=== PATIENT | female | born 2000 | race Hispanic/Latino ===

== ENCOUNTER 2024-05-11 17:21 | Emergency (ER) | payer OTHER ==
[2024-05-11] MEDS ORDERED: ONDANSETRON 4 MG/2 ML VIAL ONE (17:34)
[2024-05-11] MEDS ORDERED: KETOROLAC 30 MG/ML INJ ONE (17:34)
[2024-05-11] MEDS ORDERED: NA CHLORIDE 0.9% 1,000 ML ONE (17:35)
[2024-05-11 17:42] LABS: Absolute Basophils 0.2 K/uL (0-0.5); Absolute Eosinophils 0.4 K/uL (0-0.5); Absolute Lymphocytes (CBC) 3.4 K/uL (0.7-4.9); Absolute Monocytes 0.8 K/uL (0.1-1.3); Absolute Neutrophil 11.8 K/uL (1.8-8.0); Basophils % 0.9 % (0-1.3); Eosinophils % 2.4 % (0-4.4); Hematocrit 40.7 % (36.0-45.0); Hemoglobin 13.1 g/dL (12.0-15.0); Lymphocytes % 20.4 % (15.3-44.8); MCH 27.9 pg (27.0-35.0); MCHC 32.3 g/dL (32.0-36.0); MCV 86.5 fL (80-100); MPV 8.1 fL (7.6-11.3); Monocytes % 4.9 % (3.3-12.3); Neutrophils % 71.4 % (41.7-73.7); Platelets 443 thou/uL (152-406); RBC Red Blood Cell Count 4.71 M/uL (3.86-4.86); Red Cell Distribution Width 15.4 % (12.1-15.2)
[2024-05-11 18:02] LABS: Albumin 3.9 g/dL (3.4-5.0); Albumin/Globulin Ratio 0.9 (1.1-1.8); Anion Gap 10.7 mEq/L (5.0-15.0); Bilirubin Total 0.3 mg/dL (0.2-1.0); Globulin 4.3 g/dL (2.3-3.5); Potassium 3.7 mEq/L (3.5-5.1); Protein, Total 8.2 g/dL (6.4-8.2)
[2024-05-11 18:17] LABS: Specific Gravity 1.027 (1.005-1.030); Sqamous Epithelial <5 /HPF (None Seen); Urine Bacteria <20 /HPF (<20); Urine Bilirubin NEGATIVE (Negative); Urine Blood Negative (Negative); Urine Clarity Turbid (Clear); Urine Color Yellow (Yellow); Urine Culture Reflex Order NOT NEEDED; Urine Glucose NEGATIVE (Negative); Urine Ketones NEGATIVE (Negative); Urine Microscopic Reflex YN ORDER UMIC; Urine Mucus 2+ /HPF (None Seen); Urine Nitrite NEGATIVE (Negative); Urine Protein TRACE (Negative); Urine Urobilinogen Normal (Normal); Urine WBC <5 /HPF (<5)
[2024-05-11] MEDS ORDERED: FAMOTIDINE 20 MG/2 ML VIAL IV ONE (18:46)
[2024-05-11] MEDS ORDERED: DIPHENHYDRAMINE 50 MG/ML VIAL ONE (18:46)
[2024-05-11] MEDS ORDERED: METHYLPREDNISOLONE 125 MG INJ ONE (18:46)
--- NOTE | 2024-05-11 18:48 | RAD REPORT ---
EXAMINATION: CT Abdomen Pelvis W Contrast CLINICAL INDICATION: Female, 24 years old. ABD PAIN TECHNIQUE: CT abdomen and pelvis was performed, after the administration of IV contrast, as per depar tment protocol. Axial, sagittal and coronal reconstructions were obtained. One or more of the following dose reduction techniques were used: Automated exposure control, adjustment of the mA and k V according to patient size, and iterative reconstruction. Unless otherwise specified, incidental findings do not require dedicated imaging follow-up. COMPARISON: CT abdomen and pelvis 03/01/2016. FINDINGS: LOWER CHEST: The visualized lung bases are clear. LIVER: Mild fatty liver is present. No focal lesion or biliary dilatation is seen. BILIARY SYSTEM: No suspicious abnormalities. SPLEEN: Normal size. No focal lesion. PANCREAS: No mass, ductal dilation, or sharlene-pancreatic fluid. ADRENALS: Normal; no mass. KIDNEYS: Normal size and contour. No hydronephrosis. Left renal mid and lower pole and right lower po le punctate radiodense foci not exceeding 3 mm, suggesting nonobstructing calculi. URINARY BLADDER: Decompressed limiting evaluation. GASTROINTESTINAL TRACT: No evidence of free air, significant intra-abdominal free fluid, bowel obstru ction or abscess. APPENDIX: Normal appendix. LYMPH NODES: No lymphadenopathy. MUSCULOSKELETAL: No acute or suspicious osseous abnormality. ADDITIONAL FINDINGS: Retroverted uterus. Trace fluid in the cul-de-sac, favored to be physiologic. Do minant left ovarian cyst or follicle measuring 2.7 cm with some marginal enhancement. IMPRESSION: Nonobstructing bilateral renal calculi not exceeding 3 mm. No other acute or concerning abnormalities seen in the abdomen or pelvis. Other incidental findings as above.
[2024-05-11] MEDS ORDERED: METOCLOPRAMIDE 10 MG/2mL INJ ONE (19:03)
--- NOTE | 2024-05-11 19:53 | ER ---
Nurse's Notes [facility] Name: Alayna White Age: 24 yrs Sex: Female : 2000 Arrival Date: 05/11/2024 Time: 17:21 Bed 17 Private MD: Diagnosis: Lower abdominal pain, unspecified;Allergy status to unspecified drugs, medicaments and biological substances status Presentation: 05/11 17:28 Chief complaint: EMS states: Lower abdominal pain x 3 hours. Coronavirus screen: At this time, the client does not indicate any symptoms associated with coronavirus-19. Ebola Screen: No symptoms or risks identified at this time. Initial Sepsis Screen: Does the patient meet any 2 criteria? No. Patient's initial sepsis screen is negative. Does the patient have a suspected source of infection? No. Patient's initial sepsis screen is negative. Risk Assessment: Do you want to hurt yourself or someone else? Patient reports no desire to harm self or others. Onset of symptoms was May 11, 2024. 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 - Infectious Disease History:: Denies. - Social history:: Smoking status: Patient denies any tobacco usage or history of. Screenin:31 [facility] ED Fall Risk Assessment (Adult) History of falling in the last 3 months, kc6 including since admission No falls in past 3 months (0 pts) Confusion or Disorientation No (0 pts) Intoxicated or Sedated No (0 pts) Impaired Gait No (0 pts) Mobility Assist Device Used No (0 pt) Altered Elimination No (0 pt) Score/Fall Risk Level 0 - 2 = Low Risk Oriented to surroundings. Abuse screen: Denies threats or abuse. Denies injuries from another. Nutritional screening: No deficits noted. Tuberculosis screening: No symptoms or risk factors identified. Assessment: 17:31 General: Appears in no apparent distress. uncomfortable, obese, well groomed, well kc6 developed, Behavior is calm, cooperative, appropriate for age. Pain: Complains of pain in right lower quadrant, left lower quadrant and suprapubic area. Neuro: Level of Consciousness is awake, alert, obeys commands, Oriented to person, place, time, situation, Appropriate for age. Cardiovascular: Capillary refill < 3 seconds. Respiratory: Airway is patent Trachea midline Respiratory effort is even, unlabored, Respiratory pattern is regular, symmetrical. GI: Abdomen is round non-distended, obese, Bowel sounds present X 4 quads. Abd is soft X 4 quads Abdomen is tender to palpation in suprapubic area, right lower quadrant and left lower quadrant Reports lower abdominal pain, constipation, nausea, Patient currently denies vomiting. : No signs and/or symptoms were reported regarding the genitourinary system. EENT: No signs and/or symptoms were reported regarding the EENT system. Derm: No signs and/or symptoms reported regarding the dermatologic system. Skin is intact, is healthy with good turgor, Skin is pink, warm \T\ dry. Musculoskeletal: No signs and/or symptoms reported regarding the musculoskeletal system. Circulation, motion, and sensation intact. Capillary refill < 3 seconds, Range of motion: intact in all extremities. 18:56 Reassessment: Patient appears in no apparent distress at this time. No changes from kc6 previously documented assessment. Patient and/or family updated on plan of care and expected duration. Pain level reassessed. Patient is alert, oriented x 3, equal unlabored respirations, skin warm/dry/pink. Patient states feeling better. Patient states symptoms have improved. Vital Signs: 17:28 BP 118 / 100; Pulse 72; Resp 16; Temp 98.8(O); Pulse Ox 98% on R/A; Weight 117.93 kg; hb Height 5 ft. 2 in. ; Pain 8/10; 17:31 BP 126 / 76; Pulse 76; Resp 16 S; Pulse Ox 97% on R/A; kc6 18:56 BP 118 / 67; Pulse 86; Resp 18 S; Pulse Ox 99% on R/A; Pain 3/10; kc6 20:00 BP 124 / 77; Pulse 85; Resp 18; Pulse Ox 100% ; cp4 17:28 Body Mass Index 47.55 (117.93 kg, 157.48 cm) hb 17:28 Pain Scale: Adult hb 18:56 Pain Scale: Adult kc6 ED Course: 17:22 Patient arrived in ED. kc6 17:24 Cameron Steele PA is PHCP. cp 17:24 Maria Ines Montes De Oca MD is Attending Physician. cp 17:29 Triage completed. hb 17:30 Claudia Rodriguez, FRANKO is Primary Nurse. kc6 17:30 Arm band placed on. hb 17:31 Patient has correct armband on for positive identification. Bed in low position. Call kc6 light in reach. Side rails up X 1. Pulse ox on. NIBP on. Door closed. Noise minimized. Lights dimmed. Pillow given. 17:31 Inserted saline lock: 20 gauge in right antecubital area, using aseptic technique. kc6 Blood collected. Flushed with 10 mL NS. Patient maintains SpO2 saturation greater than 95% on room air. 18:37 CT Abd/Pelvis - IV Contrast Only In Process Unspecified. EDMS 19:07 Report given to Carlene Bell RN. kc6 20:15 Provided Education on: abdominal pain, drug allergy. cp4 20:15 No provider procedures requiring assistance completed. intact, bleeding controlled, No cp4 redness/swelling at site. Pressure dressing applied. Administered Medications: 17:39 Drug: NS 0.9% IV 1000 ml IV at 1 bolus Per protocol; 1000 mL bolus Route: IV; Rate: 1 kc6 bolus; Site: right antecubital; 17:39 Drug: TORadol - Ketorolac IVP 15 mg IVP once Route: IVP; Site: right antecubital; kc6 18:56 Follow up: Response: Adverse reaction, Physician notified kc6 17:39 Drug: Ondansetron IVP 4 mg IVP once; over 2 minutes Route: IVP; Site: right antecubital;kc6 19:13 Follow up: Response: No adverse reaction kc6 18:56 Drug: diphenhydrAMINE IVP 50 mg IVP once Route: IVP; Site: right antecubital; kc6 19:00 Follow up: Response: No adverse reaction kc6 18:56 Drug: MethylPrednisoLONE IVP 125 mg IVP once Route: IVP; Site: right antecubital; kc6 19:00 Follow up: Response: No adverse reaction kc6 18:56 Drug: Famotidine IVP 20 mg IVP once; dilute with 10 mL 0.9% NaCl; give over 2 minutes kc6 Route: IVP; Site: right antecubital; 19:00 Follow up: Response: No adverse reaction kc6 19:06 Drug: metoCLOPramide IVP 10 mg IVP once; over 1 to 2 minutes Route: IVP; Site: right kc6 antecubital; 20:19 Follow up: Response: No adverse reaction cp4 Medication: 20:15 VIS not applicable for this client. cp4 Outcome: 19:52 Discharge ordered by MD. cp 20:15 Discharged to home ambulatory, cp4 20:15 Condition: stable 20:15 Discharge instructions given to patient, Instructed on discharge instructions, follow up and referral plans. medication usage, Demonstrated understanding of instructions, follow-up care, medications, Prescriptions given X 4, 20:18 Patient left the ED. cp4 Signatures: Dispatcher [employer] EDMS Cameron Steele PA PA cp Baxter, Heather, RN RN Claudia Rodriguez RN RN [facility] Maddy Bell [facility] Corrections: (The following items were deleted from the chart) 17:39 17:30 Allergies: No Known Allergies; hb kc6 19:12 17:39 Ondansetron IVP 4 mg IVP in right antecubital kc6 kc6 19:12 18:56 Response: No adverse reaction; Nausea is decreased kc6 kc6
--- NOTE | 2024-05-11 19:53 | EDPHYS ---
Physician Documentation [facility] Name: Alayna White Age: 24 yrs Sex: Female : 2000 Arrival Date: 05/11/2024 Time: 17:21 Bed 17 Private MD: ED Physician Maria Ines Montes De Oca HPI: 05/11 17:25 This 24 yrs old Female presents to ER via Unassigned with complaints of Lower Abdominal cp Pain. 17:25 The patient presents with abdominal pain in the lower abdomen. Onset: The cp symptoms/episode began/occurred today, about 1400. The symptoms radiate to low back and flank area. Associated signs and symptoms: Pertinent positives: constipation. The symptoms are described as crampy. 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 - Infectious Disease History:: Denies. - Social history:: Smoking status: Patient denies any tobacco usage or history of. ROS: 17:30 Constitutional: Negative for body aches, chills, fever, poor PO intake, cp 17:30 Cardiovascular: Negative for chest pain, palpitations, cp 17:30 Respiratory: Negative for cough, shortness of breath, wheezing, 17:30 Eyes: Negative for injury, pain, redness, and discharge, cp 17:30 ENT: Negative for drainage from ear(s), ear pain, sore throat, difficulty swallowing, difficulty handling secretions, 17:30 Abdomen/GI: Positive for abdominal pain, nausea, of the right lower quadrant and left lower quadrant, Negative for vomiting, diarrhea, constipation, 17:30 Back: Positive for radiated pain, of the low back area, 17:30 : Negative for urinary symptoms, vaginal bleeding, vaginal discharge, 17:30 All other systems are negative, Exam: 17:34 Head/Face: Normocephalic, atraumatic. cp 17:34 Constitutional: The patient appears in no acute distress, alert, awake, non-toxic, well developed, obese, uncomfortable, 17:34 Eyes: Periorbital structures: appear normal, Conjunctiva: normal, no exudate, no injection, Sclera: no appreciated abnormality, Lids and lashes: appear normal, bilaterally, 17:34 ENT: External ear(s): are unremarkable, Nose: is normal, Mouth: Lips: moist, Oral mucosa: moist, Posterior pharynx: Airway: no evidence of obstruction, patent, 17:34 Chest/axilla: Inspection: normal, 17:34 Cardiovascular: Rate: normal, Rhythm: regular, 17:34 Respiratory: the patient does not display signs of respiratory distress, Respirations: normal, no use of accessory muscles, no retractions, labored breathing, is not present, Breath sounds: are clear throughout, no decreased breath sounds, no stridor, no wheezing, 17:34 Abdomen/GI: Inspection: obese Bowel sounds: active, all quadrants, Palpation: soft, in all quadrants, moderate abdominal tenderness, in the right lower quadrant and left lower quadrant, rebound tenderness, is not appreciated, involuntary guarding, is not appreciated, 17:34 Back: pain, that is moderate, of the low back area, ROM is painful, with all movement, CVA tenderness, is absent, 19:50 : Pelvic Exam: The exam is refused by the patient/guardian. The risks and cp consequences are understood by the patient, Vital Signs: 17:28 BP 118 / 100; Pulse 72; Resp 16; Temp 98.8(O); Pulse Ox 98% on R/A; Weight 117.93 kg; hb Height 5 ft. 2 in. ; Pain 8/10; 17:31 BP 126 / 76; Pulse 76; Resp 16 S; Pulse Ox 97% on R/A; kc6 18:56 BP 118 / 67; Pulse 86; Resp 18 S; Pulse Ox 99% on R/A; Pain 3/10; kc6 20:00 BP 124 / 77; Pulse 85; Resp 18; Pulse Ox 100% ; cp4 17:28 Body Mass Index 47.55 (117.93 kg, 157.48 cm) hb 17:28 Pain Scale: Adult hb 18:56 Pain Scale: Adult kc6 MDM: 18:00 Differential diagnosis: appendicitis, non-specific abd pain, Ovarian Torsion, Pelvic cp Inflammatory Disease, Pyelonephritis, Tubal Ovarian Abcess, Ureterolithiasis, urinary tract infection. 19:52 Patient medically screened. cp 19:52 Data reviewed: vital signs, nurses notes, lab test result(s), radiologic studies, CT cp scan. 19:52 I considered the following discharge prescriptions or medication management in the emergency department Medications were administered in the Emergency Department. See MAR. Counseling: I had a detailed discussion with the patient and/or guardian regarding the historical points, exam findings, and any diagnostic results supporting the discharge/admit diagnosis, lab results, radiology results, to return to the emergency department if symptoms worsen or persist or if there are any questions or concerns that arise at home. Response to treatment: the patient's symptoms have markedly improved after treatment, and as a result, I will discharge patient. Special discussion: Based on the patient's Hx, exam, and Dx evaluation, there is no indication for emergent surgery or inpatient Tx. It is understood by the patient/guardian that if the Sx's persist or worsen they need to return immediately for re-evaluation. 05/11 17:26 Order name: CBC with Diff; Complete Time: 18:22 cp 05/11 18:23 Interpretation: Normal except: WBC 16.60; PLT 443; RDW 15.4; NEUT A 11.8. cp 05/11 17:26 Order name: CMP; Complete Time: 18:22 cp 05/11 18:23 Interpretation: Normal except: GLUC 146. cp 05/11 17:26 Order name: Lipase; Complete Time: 18:22 cp 05/11 17:26 Order name: Test, Urine; Complete Time: 18:22 cp 05/11 17:26 Order name: Urinalysis w/ reflexes; Complete Time: 18:22 cp 05/11 17:30 Order name: Test, Serum; Complete Time: 18:22 kc6 05/11 17:26 Order name: CT Abd/Pelvis - IV Contrast Only; Complete Time: 19:01 cp 05/11 17:26 Order name: IV Saline Lock; Complete Time: 17:30 cp 05/11 17:26 Order name: Labs collected and sent; Complete Time: 17:30 cp Administered Medications: 17:39 Drug: NS 0.9% IV 1000 ml IV at 1 bolus Per protocol; 1000 mL bolus Route: IV; Rate: 1 kc6 bolus; Site: right antecubital; 17:39 Drug: TORadol - Ketorolac IVP 15 mg IVP once Route: IVP; Site: right antecubital; kc6 18:56 Follow up: Response: Adverse reaction, Physician notified kc6 17:39 Drug: Ondansetron IVP 4 mg IVP once; over 2 minutes Route: IVP; Site: right antecubital;kc6 19:13 Follow up: Response: No adverse reaction kc6 18:56 Drug: diphenhydrAMINE IVP 50 mg IVP once Route: IVP; Site: right antecubital; kc6 19:00 Follow up: Response: No adverse reaction kc6 18:56 Drug: MethylPrednisoLONE IVP 125 mg IVP once Route: IVP; Site: right antecubital; kc6 19:00 Follow up: Response: No adverse reaction kc6 18:56 Drug: Famotidine IVP 20 mg IVP once; dilute with 10 mL 0.9% NaCl; give over 2 minutes kc6 Route: IVP; Site: right antecubital; 19:00 Follow up: Response: No adverse reaction kc6 19:06 Drug: metoCLOPramide IVP 10 mg IVP once; over 1 to 2 minutes Route: IVP; Site: right kc6 antecubital; 20:19 Follow up: Response: No adverse reaction cp4 Disposition Summary: 05/11/24 19:52 Discharge Ordered Notes: Location: Home cp Problem: new cp Symptoms: have improved cp Condition: Stable cp Diagnosis - Lower abdominal pain, unspecified cp - Allergy status to unspecified drugs, medicaments and biological substances status cp Followup: cp - With: Private Physician - When: 2 - 3 days - Reason: Recheck today's complaints Discharge Instructions: - Discharge Summary Sheet cp - Abdominal Pain, Adult cp - Drug Allergy cp Forms: - Medication Reconciliation Form cp - Antibiotic Education cp - Prescription Opioid Use cp - Patient Portal Instructions cp - Leadership Thank You Letter cp Prescriptions: - Pepcid 20 mg Oral Tablet - take 1 tablet ORAL route every 12 hours for 10 days; 20 tablet; Refills: 0, cp Product Selection Permitted - Zofran 4 mg Oral Tablet - take 1 tablet ORAL route every 12 hours As needed; 20 tablet; Refills: 0, cp Product Selection Permitted - Medrol (Meet) 4 mg Oral Tablets, Dose Pack - take 1 tablet ORAL route as directed - follow package instructions; 1 packet; cp Refills: 0, Product Selection Permitted - dicyclomine 20 mg Oral tablet - take 1 tablet ORAL route 4 times per day; 30 tablet; Refills: 0, Product cp Selection Permitted Signatures: Dispatcher [employer] Cameron Cerrato PA PA cp Baxter, Heather, RN RN Claudia Dorantes RN RN kc6 Maddy Bell cp4 Corrections: (The following items were deleted from the chart) 17:39 17:30 Allergies: No Known Allergies; justin [id number]
[2024-05-11 20:30] VITALS: TEMP 98.8
[2024-05-11 20:35] VITALS: BP 124/77; O2SAT 100
== END 2024-05-11 20:18 | disposition home or self-care (01) ==
LOC: ER 17:21
DX: R10.32 Left lower quadrant pain (principal); R10.31 Right lower quadrant pain; Z88.6 Allergy status to analgesic agent
CPT/HCPCS: 85025; 81001; 36415; 84703; 81025; 83690; 80053; 74177; 96375; 96374; 99284; Q9967; J2765; J1200; J2919; J2405; J7030

== ENCOUNTER 2024-12-03 15:27 | Emergency (ER) | payer OTHER ==
--- OUTSIDE RECORDS SUMMARY | 2024-12-03 15:34 | XMS REPORT | Continuity of Care Document ---
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 [facility] 2023-03-20 00:00:00 2023-03-20 00:00:00 Outpatient White_M [facility] [id number] [facility] 2023-03-20 00:00:00 2023-03-20 00:00:00 Outpatient White_M [facility] [id number] [facility] 2023-03-20 00:00:00 2023-03-20 00:00:00 Outpatient White_M [facility] [id number] [facility] 2023-03-20 00:00:00 2023-03-20 00:00:00 Outpatient White_M [facility] [id number] [facility] 2023-03-20 00:00:00 2023-03-20 00:00:00 Reji Yeboah MD: [address] [place] [address], [address], [place] [address] , Ph. [phone] [facility] [id number] [facility] 2023-02-20 14:09:00 2023-02-20 14:09:00 Outpatient REJI CHAVEZ [facility] [id number] [facility] 2023-02-20 00:00:00 2023-02-20 00:00:00 Outpatient White_M [facility] [id number] [facility] 2023-02-20 00:00:00 2023-02-20 00:00:00 Reji Yeboah MD: [address], [address], [place] [address] , Ph. [phone] [facility] [id number] [facility] 2023-01-29 00:00:00 2023-01-29 00:00:00 Reji Yeboah MD: [address], [address], [place] [address] , Ph. [phone] [facility] [id number] [facility] 2023-01-24 00:00:00 2023-01-24 00:00:00 Outpatient Tomek_T [facility] [id number] [facility] 2023-01-24 00:00:00 2023-01-24 00:00:00 Outpatient Tomek_T [facility] [id number] [facility] 2023-01-24 00:00:00 2023-01-24 00:00:00 Outpatient Tomek_T [facility] [id number] [facility] 2023-01-23 18:01:00 2023-01-23 21:31:00 Emergency ER FLO GARRIDO [facility] [id number] [facility] 2022-11-21 00:00:00 2022-11-21 00:00:00 Outpatient Tomek_T [facility] [id number] [facility] 2022-11-21 00:00:00 2022-11-21 00:00:00 Outpatient Tomek_T [facility] [id number] [facility] 2022-11-21 00:00:00 2022-11-21 00:00:00 Ion Peralta MD: [address], [address], [place] [address] , Ph. [facility] [id number] [facility] 2022-11-16 00:00:00 2022-11-16 00:00:00 Outpatient [facility] [id number] [facility] 2022-11-02 16:43:00 2022-11-02 16:43:00 Outpatient RICA REJI YEBOAH [facility] [id number] [facility] 2022-10-24 15:20:00 2022-10-24 15:20:00 Outpatient ION BLACKMON [facility] [id number] [facility] 2022-10-24 00:00:00 2022-10-24 00:00:00 Outpatient G[facility] [id number] [facility] 2022-10-24 00:00:00 2022-10-24 00:00:00 Reji Yeboah MD: [address], [address], [place] [address] , Ph. [phone] [facility] [id number] [facility] 2022-10-16 16:14:00 2022-10-16 18:30:00 Emergency ER FLO GARRIDO [facility] [id number] [facility] 2022-10-13 00:00:00 2022-10-13 00:00:00 Outpatient Koudela_A [facility] [id number] [facility] 2022-10-13 00:00:00 2022-10-13 00:00:00 Ion Peralta MD: [address], [address], [place] [address] , [facility] [id number] [facility] 2022-09-13 00:00:00 2022-09-13 00:00:00 HUGH Fuller: [address], [place] [address] , Ph. [facility] [id number] [facility] 2022-07-23 00:00:00 2022-07-23 00:00:00 Outpatient Koudela_A [facility] [id number] [facility] 2022-07-23 00:00:00 2022-07-23 00:00:00 Outpatient Koudela_A [facility] [id number] [facility] 2022-07-22 00:00:00 2022-07-22 00:00:00 Outpatient Koudela_A [facility] [id number] [facility] 2022-07-22 00:00:00 2022-07-22 00:00:00 Marie Costello PA-C: [address] [place] [address] , Ph. [facility] [id number] [facility] 2022-07-11 08:59:00 2022-07-11 10:48:00 Emergency ER LUIS FERNANDO FERRO [facility] [id number] [facility] 2022-05-23 08:22:00 2022-05-23 08:22:00 Outpatient RICA SURINDER PHELPS [facility] [id number] [facility] 2022-04-17 17:18:00 2022-04-17 22:17:00 Emergency ER WASHINGTON LOPEZ [facility] [id number] [facility] 2022-02-27 08:55:00 2022-02-27 10:16:00 Emergency ER LUIS FERNANDO FERRO [facility] [id number] [facility] 2021-12-12 17:17:00 2021-12-12 18:53:00 Emergency ER FLO GARRIDO [facility] [id number] [facility] 2021-11-26 07:43:00 2021-11-26 10:20:00 Emergency ER CHRISTOPHER RIVERA [facility] [id number] [facility] 2021-09-26 14:50:00 2021-09-26 20:17:00 Emergency ER TERA GRESHAM [facility] [id number] [facility] 2021-04-13 18:49:00 2021-04-13 22:15:00 Emergency ER NICOLE REDMAN [facility] [id number] [facility] 2020-12-14 03:30:00 2020-12-14 03:30:00 Outpatient G_Pappas [facility] [id number] [facility] 2020-12-14 03:30:00 2020-12-14 03:30:00 Outpatient G_Pappas [facility] [id number] [facility] 2020-12-14 00:00:00 2020-12-14 00:00:00 Reji Yeboah MD: [address] [place] [address] [address], [place] [address] , Ph. [phone] [facility] [id number] [facility] 2020-12-07 11:22:00 2020-12-07 14:23:00 Emergency ER CELEBRIDGETT [facility] [id number] [facility] 2020-11-24 00:14:00 2020-11-24 02:28:00 Emergency ER NICOLE REDMAN [facility] [id number] [facility] 2020-08-18 04:51:00 2020-08-18 04:51:00 Outpatient Koudela_A [facility] [id number] [facility] 2020-08-16 08:42:00 2020-08-16 08:42:00 Outpatient Koudela_A [facility] [id number] [facility] 2020-08-16 00:00:00 2020-08-16 00:00:00 Reji Yeboah MD: [address], [place] [address] , Ph. [phone] [facility] [id number] [facility] 2020-08-14 11:32:00 2020-08-14 11:32:00 Outpatient Koudela_A [facility] [id number] [facility] 2020-08-14 11:32:00 2020-08-14 11:32:00 Outpatient Koudela_A [facility] [id number] [facility] 2020-08-14 00:00:00 2020-08-14 00:00:00 Marie Costello PA-C: [address], [place] [address] , Ph. [facility] [id number] [facility] 2020-04-15 06:50:00 2020-04-17 13:21:00 Inpatient C MALIKAOHUN C FUNSHO KANCHAN C BENSHO [facility] [place] [id number] [facility] 2020-01-26 13:56:00 2020-01-26 19:22:00 Outpatient C HENRYUN C FUNSHO [facility] OB [id number] [facility] 2019-11-25 10:26:00 2019-11-25 23:59:00 Outpatient C MALIKAOHUN C FUNSHO [facility] RAD [id number] [facility] 2019-08-25 09:05:00 2019-08-25 09:05:00 Outpatient Rutledge_L [facility] [id number] [facility] 2018-12-14 10:41:00 2018-12-14 10:41:00 Outpatient DAVE TRAORE [facility] [id number] [facility] 2018-08-18 11:55:00 2018-08-18 13:25:00 Emergency ER ADINA LINDO [facility] [id number] [facility] 2016-02-25 10:15:00 2016-02-25 10:15:00 Outpatient MHIE GEMA [id number] Elvis Romano Results Test Description Test Time Test Comments Results Result Co mments Source [facility] [id number] 08:14:00* Test Item Value Reference Range Interpretation Comme nts .hepatitis B surface antigen (test code = .hepatitis B surface antigen) negative negative [facility] W Auto Differential panel - [id number] 05:58:00 * Test Item Value Reference Range Interpretation Comme nts white blood count (test code = white blood count) 12.7 K/uL 4.0-11.5 H red blood count (test code = red blood count) 3.51 M/uL 3.80-5.20 L hemoglobin (test code = hemoglobin) 9.4 g/dL 10.5-15.7 L hematocrit (test code = hematocrit) 30.3 % 34.0-50.0 L mean corpuscular volume (goldy t code = mean corpuscular volume) 86.3 fL 86.0-100.0 mean corpuscular hemoglobin (test code = mean corpuscular hemoglobin) 26.8 pg 26.2-33.4 mean corpuscular HGB conc (t est code = mean corpuscular HGB conc) 31.0 g/dL 30.0-34.0 red cell distribution width (test code = red cell distribution width) 15.1 % 12.0-15.5 platelet count (test code = platelet count) 215 K/uL 165-450 mean platelet volume (test c ode = mean platelet volume) 9.8 fL 9.4-12.6 neutrophils % (test code = neutrophils %) 77.6 % 44.4-80.1 Ig% (test code = Ig%) 0.6 % 0.0-0.4 H lymphocyte% (test code = lymphocyte%) 13.7 % 10.0-50.0 mono % (test code = mono %) 7.2 % 3.6-12.0 eos % (test code = eos %) 0.7 % 0.0-5.4 basophil % (test code = baso hue %) 0.2 % 0.1-1.2 absolute neutrophil count (t est code = absolute neutrophil count) 9.89 K/uL 1.56-6.13 H Ig# (test code = Ig#) 0.08 K/uL 0.00-0.03 H lymph # (test code = lymph #) 1.74 K/uL 1.18-3.74 mono # (test code = mono #) 0.92 K/uL 0.24-0.86 H eos # (test code = eos #) 0.09 K/uL 0.04-0.36 basophil # (test code = baso hue #) 0.02 K/uL 0.01-0.08 NRBC% (test code = NRBC%) 0 /100 WBC 0-0.2 NRBC# (test code = NRBC#) 0 K/uL [id number] 22:03:00* Test Item Value Reference Range Interpretation Comme nts RPR (test code = RPR) nonreactive nonreactive [facility] Differential panel - [id number] 21:06:00 * Test Item Value Reference Range Interpretation Comme nts white blood count (test code = white blood count) 14.4 K/uL 4.0-11.5 H red blood count (test code = red blood count) 3.74 M/uL 3.80-5.20 L hemoglobin (test code = hemoglobin) 10.1 g/dL 10.5-15.7 L hematocrit (test code = hematocrit) 31.9 % 34.0-50.0 L mean corpuscular volume (goldy t code = mean corpuscular volume) 85.3 fL 86.0-100.0 L mean corpuscular hemoglobin (test code = mean corpuscular hemoglobin) 27.0 pg 26.2-33.4 mean corpuscular HGB conc (t est code = mean corpuscular HGB conc) 31.7 g/dL 30.0-34.0 red cell distribution width (test code = red cell distribution width) 15.0 % 12.0-15.5 platelet count (test code = platelet count) 239 K/uL 165-450 mean platelet volume (test c ode = mean platelet volume) 10.7 fL 9.4-12.6 neutrophils % (test code = neutrophils %) 82.8 % 44.4-80.1 H Ig% (test code = Ig%) 0.5 % 0.0-0.4 H lymphocyte% (test code = lymphocyte%) 10.6 % 10.0-50.0 mono % (test code = mono %) 5.6 % 3.6-12.0 eos % (test code = eos %) 0.3 % 0.0-5.4 basophil % (test code = baso hue %) 0.2 % 0.1-1.2 absolute neutrophil count (t est code = absolute neutrophil count) 11.91 K/uL 1.56-6.13 H Ig# (test code = Ig#) 0.07 K/uL 0.00-0.03 H lymph # (test code = lymph #) 1.52 K/uL 1.18-3.74 mono # (test code = mono #) 0.81 K/uL 0.24-0.86 eos # (test code = eos #) 0.04 K/uL 0.04-0.36 basophil # (test code = baso hue #) 0.03 K/uL 0.01-0.08 NRBC% (test code = NRBC%) 0 /100 WBC 0-0.2 NRBC# (test code = NRBC#) 0 K/uL [facility] panel drug [id number] 11:45:00* Test Item Value Reference Range Interpretation Comme nts amphetamines screen urine (t est code = amphetamines screen urine) negative negative barbiturates, urine quant. ( test code = barbiturates, urine quant.) negative negative benzodiazepines screen urine (test code = benzodiazepines screen urine) negative negative cannabinoids (test code = cannabinoids) negative negative cocaine (test code = cocaine) negative negative opiates (test code = opiates) negative negative hydrocodone (test code = hydrocodone) negative negative fentanyl (test code = fentanyl) negative negative phencyclidine (test code = phencyclidine) negative negative methadone (test code = methadone) negative negative propoxyphene (test code = propoxyphene) negative negative oxycodone (test code = oxycodone) negative negative drug screen note (test code = drug screen note) . [id number] 06:11:00* Test Item Value Reference Range Interpretation Comme nts glucose (test code = glucose) 138 mg/dL 74-106 H [facility] Auto Differential panel - [id number] 05:51:00 * Test Item Value Reference Range Interpretation Comme nts white blood count (test code = white blood count) 13.7 K/uL 4.0-11.5 H red blood count (test code = red blood count) 3.93 M/uL 3.80-5.20 hemoglobin (test code = hemoglobin) 10.7 g/dL 10.5-15.7 hematocrit (test code = hematocrit) 33.1 % 34.0-50.0 L mean corpuscular volume (goldy t code = mean corpuscular volume) 84.2 fL 86.0-100.0 L mean corpuscular hemoglobin (test code = mean corpuscular hemoglobin) 27.2 pg 26.2-33.4 mean corpuscular HGB conc (t est code = mean corpuscular HGB conc) 32.3 g/dL 30.0-34.0 red cell distribution width (test code = red cell distribution width) 14.6 % 12.0-15.5 platelet count (test code = platelet count) 275 K/uL 165-450 mean platelet volume (test c ode = mean platelet volume) 10.5 fL 9.4-12.6 neutrophils % (test code = neutrophils %) 72.9 % 44.4-80.1 Ig% (test code = Ig%) 0.7 % 0.0-0.4 H lymphocyte% (test code = lymphocyte%) 18.5 % 10.0-50.0 mono % (test code = mono %) 6.4 % 3.6-12.0 eos % (test code = eos %) 1.1 % 0.0-5.4 basophil % (test code = baso hue %) 0.4 % 0.1-1.2 absolute neutrophil count (t est code = absolute neutrophil count) 9.99 K/uL 1.56-6.13 H Ig# (test code = Ig#) 0.09 K/uL 0.00-0.03 H lymph # (test code = lymph #) 2.53 K/uL 1.18-3.74 mono # (test code = mono #) 0.88 K/uL 0.24-0.86 H eos # (test code = eos #) 0.15 K/uL 0.04-0.36 basophil # (test code = baso hue #) 0.05 K/uL 0.01-0.08 NRBC% (test code = NRBC%) 0 /100 WBC 0-0.2 NRBC# (test code = NRBC#) 0 K/uL [facility] and [id number] 05:45:00* Test Item Value Reference Range Interpretation Comme nts antibody screen (test code = antibody screen) negative blood type (test code = blood type) on [facility] HospitalGlucose [Mass/volume] in Capillary [id number] 09:47:24* Test Item Value Reference Range Interpretation Comme nts GLU (test code = GLU) 122 [facility] HospitalUrinalysis macro (dipstick) panel - [id number] 09:41:00* Test Item Value Reference Range Interpretation Comme nts Leukocytes (test code = Leukocytes) Trace Nitrite (test code = Nitrite) negative Urobilinogen (test code = Urobilinogen) .2 Protein (test code = Protein) 30 pH (test code = pH) 7.0 Blood (test code = Blood) Negative Specific [place] (test code = Specific [place]) 1.025 Ketone (test code = Ketone) Negative Bilirubin (test code = Bilirubin) Negative Glucose (test code = Glucose) Negative Appearance (test code = Appearance) Clear Color (test code = Color) Yellow [facility] HospitalUrinalysis macro (dipstick) panel - [id number] 09:05:08* Test Item Value Reference Range Interpretation Comme nts Leukocytes (test code = Leukocytes) Negative Nitrite (test code = Nitrite) negative Urobilinogen (test code = Urobilinogen) .2 Protein (test code = Protein) 100 pH (test code = pH) 6.5 Blood (test code = Blood) Negative Specific [place] (test code = Specific [place]) 1.025 Ketone (test code = Ketone) Negative Bilirubin (test code = Bilirubin) Negative Glucose (test code = Glucose) Negative Appearance (test code = Appearance) Clear Color (test code = Color) Yellow [facility]/volume] in Capillary [id number] 09:01:36* Test Item Value Reference Range Interpretation Comme nts GLU (test code = GLU) 104 [facility] [Mass/volume] in Capillary [id number] 09:01:00* Test Item Value Reference Range Interpretation Comme nts GLU (test code = GLU) 104 [facility] [id number] 20:58:00* Test Item Value Reference Range Interpretation Comme nts blood glucose monitoring (te st code = blood glucose monitoring) 90 mg/dL 70-110 [place] [facility] [id number] 20:39:00* Test Item Value Reference Range Interpretation Comme nts color, urine (test code = co jo ann, urine) colorless appearance, urine (test code = appearance, urine) clear clear urine glucose (test code = u rine glucose) negative negative bilirubin, urine (test code = bilirubin, urine) negative negative ketone, urine (test code = k etone, urine) negative negative specific gravity,urine (test code = specific gravity,urine) 1.002 1.003-1.030 L blood urine (test code = blo od urine) negative negative pH,urine (test code = pH,urine) 6.500 5-9 protein urine (UA) (test cod e = protein urine (UA)) negative negative urobilinogen, urine (test co de = urobilinogen, urine) normal 0.2-1.0 nitrate, urine (test code = nitrate, urine) negative negative urine leukocyte esterase (te st code = urine leukocyte esterase) negative negative [facility] [id number] 15:28:00* Test Item Value Reference Range Interpretation Comme nts Hemoglobin A1c/Hemoglobin.to norberto in Blood (test code = 4548-4) 5.4 % 4.0-6.0 [facility] A1[facility]/Hemoglobin.total in [id number] 15:28:00* Test Item Value Reference Range Interpretation Comme nts Hemoglobin A1c/Hemoglobin.to norberto in Blood (test code = 4548-4) 5.4 % 4.0-6.0 [facility] HospitalUrinalysis macro (dipstick) panel - [id number] 14:16:01* Test Item Value Reference Range Interpretation Comme nts Leukocytes (test code = Leukocytes) Negative Nitrite (test code = Nitrite) negative Urobilinogen (test code = Urobilinogen) .2 Protein (test code = Protein) Trace pH (test code = pH) 6.5 Blood (test code = Blood) Negative Specific [place] (test code = Specific [place]) 1.025 Ketone (test code = Ketone) Trace Bilirubin (test code = Bilirubin) Negative Glucose (test code = Glucose) 250 Appearance (test code = Appearance) Clear Color (test code = Color) Yellow [facility] HospitalGlucose [Mass/volume] in Capillary [id number] 14:15:00* Test Item Value Reference Range Interpretation Comme nts GLU (test code = GLU) 171 [facility] Hosp[id number] 17:03:00* Test Item Value Reference Range Interpretation Comme nts color, urine (test code = co jo ann, urine) light yellow appearance, urine (test code = appearance, urine) clear clear urine glucose (test code = u rine glucose) negative negative bilirubin, urine (test code = bilirubin, urine) negative negative ketone, urine (test code = ketone, urine) negative negative specific gravity,urine (test code = specific gravity,urine) 1.024 1.003-1.030 blood urine (test code = blo od urine) negative negative pH,urine (test code = pH,urine) 7.000 5-9 protein urine (UA) (test cod e = protein urine (UA)) trace negative urobilinogen, urine (test co de = urobilinogen, urine) normal 0.2-1.0 nitrate, urine (test code = nitrate, urine) negative negative urine leukocyte esterase (te st code = urine leukocyte esterase) negative negative [facility] [id number] 00:00:00* Test Item Value Reference Range Interpretation Comme nts CT/NG (test code = CT/NG) normal trichomonas vaginalis addon - swab (test code = trichomonas vaginalis addon - swab) normal [facility]treptococcus agalactiae [Presence] in Vag+Rectum by Organism specific [id number] 00:00:00* Test Item Value Reference Range Interpretation Comme nts group B strep (test code = g roup B strep) negative [facility]Glucose [Mass/volume] in Capillary [id number] 09:50:14* Test Item Value Reference Range Interpretation Comme nts GLU (test code = GLU) 117 [facility]hem[facility] [id number] 13:12:00* Test Item Value Reference Range Interpretation Comme nts Hemoglobin A1c/Hemoglobin.to norberto in Blood (test code = 4548-4) 5.5 % 4.0-6.0 [facility] HospitalUrinalysis macro (dipstick) panel - [id number] 10:37:00* Test Item Value Reference Range Interpretation Comme nts Leukocytes (test code = Leukocytes) Negative Nitrite (test code = Nitrite) negative Urobilinogen (test code = Urobilinogen) .2 Protein (test code = Protein) Trace pH (test code = pH) 6.5 Blood (test code = Blood) Negative Specific [place] (test code = Specific [place]) 1.030 Ketone (test code = Ketone) Negative Bilirubin (test code = Bilirubin) Negative Glucose (test code = Glucose) Negative Appearance (test code = Appearance) Clear Color (test code = Color) Yellow [facility] HospitalGlucose [Mass/volume] in Capillary [id number] 10:35:12* Test Item Value Reference Range Interpretation Comme nts GLU (test code = GLU) 132 [facility] HospitalGlucose [Mass/volume] in Capillary [id number] 14:12:46* Test Item Value Reference Range Interpretation Comme nts GLU (test code = GLU) 96 [facility] HospitalUrinalysis macro (dipstick) panel - [id number] 13:56:00* Test Item Value Reference Range Interpretation Comme nts Leukocytes (test code = Leukocytes) Negative Nitrite (test code = Nitrite) negative Urobilinogen (test code = Urobilinogen) .2 Protein (test code = Protein) Negative pH (test code = pH) 6.0 Blood (test code = Blood) Negative Specific [place] (test code = Specific [place]) 1.025 Ketone (test code = Ketone) Trace Bilirubin (test code = Bilirubin) Negative Glucose (test code = Glucose) Negative Appearance (test code = Appearance) Clear Color (test code = Color) Yellow [facility] HospitalRPR2023-12-06 20:01:00* Test Item Value Reference Range Interpretation Comme nts RPR (test code = RPR) nonreactive nonreactive [facility]hemoglobin [id number] 11:03:00* Test Item Value Reference Range Interpretation Comme nts Hemoglobin A1c/Hemoglobin.to norberto in Blood (test code = 4548-4) 5.4 % 4.0-6.0 [facility]HIV [facility] ([facility]-house)2023-07-09 10:45:00* Test Item Value Reference Range Interpretation Comme nts HIV P24 Ag (test code = HIV P24 Ag) non-reactive nonreactive HIV-1/2 Ab (test code = HIV- 1/2 Ab) non-reactive nonreactive [facility]12 panel drug [id number] 10:40:00* Test Item Value Reference Range Interpretation Comme nts amphetamines screen urine (t est code = amphetamines screen urine) negative negative barbiturates, urine quant. ( test code = barbiturates, urine quant.) negative negative benzodiazepines screen urine (test code = benzodiazepines screen urine) negative negative cannabinoids (test code = cannabinoids) positive negative A cocaine (test code = cocaine) negative negative opiates (test code = opiates) negative negative hydrocodone (test code = hydrocodone) negative negative fentanyl (test code = fentanyl) negative negative phencyclidine (test code = phencyclidine) negative negative methadone (test code = methadone) negative negative propoxyphene (test code = propoxyphene) negative negative oxycodone (test code = oxycodone) negative negative drug screen note (test code = drug screen note) . [facility] HospitalCBC W Auto Differential panel - [id number] 10:13:00 * Test Item Value Reference Range Interpretation Comme nts white blood count (test code = white blood count) 11.8 K/uL 4.0-11.5 H red blood count (test code = red blood count) 3.92 M/uL 3.80-5.20 hemoglobin (test code = hemoglobin) 10.9 g/dL 10.5-15.7 hematocrit (test code = hematocrit) 34.1 % 34.0-50.0 mean corpuscular volume (goldy t code = mean corpuscular volume) 87.0 fL 86.0-100.0 mean corpuscular hemoglobin (test code = mean corpuscular hemoglobin) 27.8 pg 26.2-33.4 mean corpuscular HGB conc (t est code = mean corpuscular HGB conc) 32.0 g/dL 30.0-34.0 red cell distribution width (test code = red cell distribution width) 13.3 % 12.0-15.5 platelet count (test code = platelet count) 280 K/uL 165-450 mean platelet volume (test c ode = mean platelet volume) 10.3 fL 9.4-12.6 neutrophils % (test code = neutrophils %) 75.6 % 44.4-80.1 Ig% (test code = Ig%) 0.6 % 0.0-0.4 H lymphocyte% (test code = lymphocyte%) 19.1 % 10.0-50.0 mono % (test code = mono %) 3.6 % 3.6-12.0 eos % (test code = eos %) 0.9 % 0.0-5.4 basophil % (test code = baso hue %) 0.2 % 0.1-1.2 absolute neutrophil count (t est code = absolute neutrophil count) 8.89 K/uL 1.56-6.13 H Ig# (test code = Ig#) 0.07 K/uL 0.00-0.03 H lymph # (test code = lymph #) 2.25 K/uL 1.18-3.74 mono # (test code = mono #) 0.42 K/uL 0.24-0.86 eos # (test code = eos #) 0.10 K/uL 0.04-0.36 basophil # (test code = baso hue #) 0.02 K/uL 0.01-0.08 NRBC% (test code = NRBC%) 0 /100 WBC 0-0.2 NRBC# (test code = NRBC#) 0 K/uL [facility]Glucose [Mass/volume] in Serum or Plasma --1 hour post dose [id number] 10:10:00* Test Item Value Reference Range Interpretation Comme nts Results (test code = Results) 244 [facility] GroupIndirect antiglobulin test.unspecified reagent [Presence] in Serum or [id number] 08:45:00* Test Item Value Reference Range Interpretation Comme nts ind denea (test code = ind denae) negative [facility] macro (dipstick) panel - [id number] 08:24:49* Test Item Value Reference Range Interpretation Comme nts Leukocytes (test code = Leukocytes) Negative Nitrite (test code = Nitrite) negative Urobilinogen (test code = Urobilinogen) .2 Protein (test code = Protein) Negative pH (test code = pH) 7.0 Blood (test code = Blood) Negative Specific [place] (test code = Specific [place]) 1.025 Ketone (test code = Ketone) Negative Bilirubin (test code = Bilirubin) Negative Glucose (test code = Glucose) Negative Appearance (test code = Appearance) Clear Color (test code = Color) Yellow [facility] GroupBacteria identified in Throat by [id number] 00:21:00* Test Item Value Reference Range Interpretation Comme nts culture,throat (test code = culture,throat) no growth. [facility] Groupflu/RSV/covid [id number] 00:59:00* Test Item Value Reference Range Interpretation Comme nts RSV xpress (test code = RSV xpress) RSV negative covid-19 inhouse (test code = covid-19 inhouse) flu A (test code = flu A) flu A negative flu B (test code = flu B) flu B positive [facility] GroupStreptococcus pyogenes Ag [Presence] in [id number] 00:40:00Strep Screen, [facility] Groupculture,urine pres id wrkup 2023-06-24 07:46:00* Test Item Value Reference Range Interpretation Comme nts culture,urine (test code = culture,urine) scant skin brennan present. no pathogen present at 1 day. [facility] Hosp[id number] 06:50:00* Test Item Value Reference Range Interpretation Comme nts color, urine (test code = co jo ann, urine) light yellow appearance, urine (test code = appearance, urine) SL cloudy clear A urine glucose (test code = u rine glucose) negative negative bilirubin, urine (test code = bilirubin, urine) negative negative ketone, urine (test code = ketone, urine) negative negative specific gravity,urine (test code = specific gravity,urine) 1.022 1.003-1.030 blood urine (test code = blo od urine) negative negative pH,urine (test code = pH,urine) 6.500 5-9 protein urine (UA) (test cod e = protein urine (UA)) trace negative urobilinogen, urine (test co de = urobilinogen, urine) normal 0.2-1.0 nitrate, urine (test code = nitrate, urine) negative negative urine leukocyte esterase (te st code = urine leukocyte esterase) negative negative RBC, urine (test code = RBC, urine) <1 0-5 WBC, urine (test code = WBC, urine) 11-14 0-5 A epithelial cell (test code = epithelial cell) 15-19 0-5 bacteria, urine (test code = bacteria, urine) trace none detect casts,urine (test code = casts,urine) 2-5 none detect urine culture added? (test c ode = urine culture added?) no [facility] HospitalUrinalysis macro (dipstick) panel - [id number] 15:38:17* Test Item Value Reference Range Interpretation Comme nts Leukocytes (test code = Leukocytes) Negative Nitrite (test code = Nitrite) negative Urobilinogen (test code = Urobilinogen) .2 Protein (test code = Protein) Negative pH (test code = pH) 6.5 Blood (test code = Blood) Negative Specific [place] (test code = Specific [place]) 1.025 Ketone (test code = Ketone) Negative Bilirubin (test code = Bilirubin) Negative Glucose (test code = Glucose) Negative Appearance (test code = Appearance) Clear Color (test code = Color) Yellow [facility] HospitalUrinalysis macro (dipstick) panel - [id number] 14:50:03* Test Item Value Reference Range Interpretation Comme nts Leukocytes (test code = Leukocytes) Negative Nitrite (test code = Nitrite) negative Urobilinogen (test code = Urobilinogen) .2 Protein (test code = Protein) Negative pH (test code = pH) 7.0 Blood (test code = Blood) Non-Hemolyzed: Trace Specific [place] (test code = Specific [place]) 1.025 Ketone (test code = Ketone) Negative Bilirubin (test code = Bilirubin) Negative Glucose (test code = Glucose) Negative Appearance (test code = Appearance) Clear Color (test code = Color) Yellow [facility] HospitalGsqjyTphhh-8-Zwmqlhjtati panel - Serum or [id number] 00:11:00* Test Item Value Reference Range Interpretation Comme nts .AFP,osb results (test code = .AFP,osb results) report See_Comment [Automated message] The system which generated this result transmitted reference range: .. The reference range was not used to interpret this result as normal/abnormal. .AFP, test results (test code = .AFP, test results) *screen negative* See_Comment [Automated message] The system which generated this result transmitted reference range: .. The reference range was not used to interpret this result as normal/abnormal. gestational age on latricia date (test code = gestational age on latricia date) 16.1 weeks See_Comment [Automated message] The system which generated this result transmitted reference range: .. The reference range was not used to interpret this result as normal/abnormal. gestational age based on (test code = gestational age based on) ultrasound See_Comment [Automated message] The system which generated this result transmitted reference range: .. The reference range was not used to interpret this result as normal/abnormal. maternal age at moiz (test code = maternal [age] at moiz) 25.5 yr See_Comment [Automated message] The system which generated this result transmitted reference range: .. The reference range was not used to interpret this result as normal/abnormal. race (test code = race) See_Comment [Automated message] The system which generated this result transmitted reference range: .. The reference range was not used to interpret this result as normal/abnormal. maternal weight (test code = maternal weight) 219 [lb av] See_Comment [Automated message] The system which generated this result transmitted reference range: .. The reference range was not used to interpret this result as normal/abnormal. ins dep diabetes (test code = ins dep diabetes) no See_Comment [Automated message] The system which generated this result transmitted reference range: .. The reference range was not used to interpret this result as normal/abnormal. multiple gestation (test code = multiple gestation) no See_Comment [Automated message] The system which generated this result transmitted reference range: .. The reference range was not used to interpret this result as normal/abnormal. .AFP value (test code = .AFP value) 30.1 NG/mL See_Comment [Automated message] The system which generated this result transmitted reference range: .. The reference range was not used to interpret this result as normal/abnormal. .AFP MOM (test code = .AFP MOM) 1.08 See_Comment [Automated message] The system which generated this result transmitted reference range: .. The reference range was not used to interpret this result as normal/abnormal. OSBR risk 1 in (test code = OSBR risk 1 in) 9540 See_Comment [Automated message] The system which generated this result transmitted reference range: .. The reference range was not used to interpret this result as normal/abnormal. .AFP interp (test code = .AFP interp) See_Comment [Automated message] The system which generated this result transmitted reference range: .. The reference range was not used to interpret this result as normal/abnormal. .AFP comment (test code = .AFP comment) See_Comment [Automated message] The system which generated this result transmitted reference range: .. The reference range was not used to interpret this result as normal/abnormal. [facility] Groupculture,urine pres id [id number] 07:39:00* Test Item Value Reference Range Interpretation Comme nts culture,urine (test code = culture,urine) no growth after 2 days [facility] HospitalBacteria identified in Urine by [id number] 07:35:00* Test Item Value Reference Range Interpretation Comme nts culture,urine (test code = culture,urine) no growth after 1 day [facility] HospitalUrinalysis macro (dipstick) panel - [id number] 09:04:00* Test Item Value Reference Range Interpretation Comme nts Leukocytes (test code = Leukocytes) Negative Nitrite (test code = Nitrite) negative Urobilinogen (test code = Urobilinogen) .2 Protein (test code = Protein) Negative pH (test code = pH) 6.5 Blood (test code = Blood) Non-Hemolyzed: Trace Specific [place] (test code = Specific [place]) 1.025 Ketone (test code = Ketone) Negative Bilirubin (test code = Bilirubin) Negative Glucose (test code = Glucose) Negative Appearance (test code = Appearance) Clear Color (test code = Color) Yellow [facility] HospitalUrinalysis macro (dipstick) panel - [id number] 14:45:47* Test Item Value Reference Range Interpretation Comme nts Leukocytes (test code = Leukocytes) Negative Nitrite (test code = Nitrite) negative Urobilinogen (test code = Urobilinogen) 1 Protein (test code = Protein) Negative pH (test code = pH) 6.5 Blood (test code = Blood) Non-Hemolyzed: Trace Specific [place] (test code = Specific [place]) 1.025 Ketone (test code = Ketone) Negative Bilirubin (test code = Bilirubin) Negative Glucose (test code = Glucose) Negative Appearance (test code = Appearance) Clear Color (test code = Color) Yellow [facility] HospitalChromosome 13+18+21+X+Y aneuploidy in Blood by Molecular genetics method [id number] 00:00:00* Test Item Value Reference Range Interpretation Comme nts report summary (test code = report summary) low risk report note (test code = report note) see notes trisomy 13 age-based risk text (test code = trisomy 13 age-based risk text) 1/6,930 (0.01%) trisomy 13 risk score text (test code = trisomy 13 risk score text) <1/10,000 (<0.01%) trisomy 13 result text (test code = trisomy 13 result text) low risk trisomy 18 age-based risk text (test code = trisomy 18 age-based risk text) 1/2,200 (0.05%) trisomy 18 risk score text (test code = trisomy 18 risk score text) <1/10,000 (<0.01%) trisomy 18 result text (test code = trisomy 18 result text) low risk trisomy 21 age-based risk text (test code = trisomy 21 age-based risk text) 1/946 (0.11%) trisomy 21 risk score text (test code = trisomy 21 risk score text) <1/10,000 (<0.01%) trisomy 21 result text (test code = trisomy 21 result text) low risk monosomy X age-based risk text (test code = monosomy X age-based risk text) 1/255 (0.39%) monosomy X risk score text (test code = monosomy X risk score text) <1/10,000 (<0.01%) monosomy X result text (test code = monosomy X result text) low risk triploidy result text (test code = triploidy result text) low risk gender of fetus (test code = gender of fetus) male fraction (test code = fraction) 7.3% footnotes (test code = footnotes) see notes [facility]Gen[facility] in Specimen by Molecular genetics method [id number] 00:00:00* Test Item Value Reference Range Interpretation Comme nts report summary (test code = report summary) negative alpha-thalassemia (test code = alpha-thalassemia) negative beta-hemoglobinopathies (goldy t code = beta-hemoglobinopathies) negative jesika disease (test code = jesika disease) negative cystic fibrosis (test code = cystic fibrosis) negative duchenne/turpin muscular dys trophy (test code = duchenne/turpin muscular dystrophy) negative familial dysautonomia (test code = familial dysautonomia) negative fragile X syndrome (test cod e = fragile X syndrome) negative galactosemia (test code = galactosemia) negative gaucher disease (test code = gaucher disease) negative medium chain acyl-coa dehydr ogenase deficiency (test code = medium chain acyl-coa dehydrogenase deficiency) negative polycystic kidney disease, autosomal recessive (test code = polycystic kidney disease, autosomal recessive) negative zicme-invup-gqbct syndrome ( test code = zrilk-tozmr-qfvhv syndrome) negative spinal muscular atrophy (goldy t code = spinal muscular atrophy) negative shai-sachs disease (test code = shai-sachs disease) negative panel notes (test code = de leon el notes) see notes report note (test code = rep ort note) see notes footnotes (test code = footnotes) see notes [facility] Grouppap, LB + CT/NG/TV + reflex HR [id number] 00:00:00* Test Item Value Reference Range Interpretation Comme nts chlamydia trachomatis by tere l-time PCR (reflex to azithromycin resistance by pyrosequencing) (test code = chlamydia trachomatis by real-time PCR (reflex to azithromycin resistance by pyrosequencing)) negative trichomonas vaginalis by tere l-time PCR (reflex to metronidazole resistance) (test code = trichomonas vaginalis by real-time PCR (reflex to metronidazole resistance)) negative mycoplasma genitalium by tere l-time PCR (reflex to azithromycin and fluoroquinolone resistance) (test code = mycoplasma genitalium by real-time PCR (reflex to azithromycin and fluoroquinolone resistance)) negative neisseria gonorrhoeae by tere l-time PCR (reflex to antibiotic resistance by molecular analysis) (test code = neisseria gonorrhoeae by real-time PCR (reflex to antibiotic resistance by molecular analysis)) negative liquid Pap test with reflex to HPV type-detect 4.0 if ASCUS or greater (test code = liquid Pap test with reflex to HPV type-detect 4.0 if ASCUS or greater) normal [facility] Groupculture,urine pres id [id number] 09:41:00* Test Item Value Reference Range Interpretation Comme nts culture,urine (test code = culture,urine) scant skin brennan present. no pathogen present at 2 days. [facility] GroupReagin Ab [Presence] in Serum by [id number] 14:50:00* Test Item Value Reference Range Interpretation Comme nts RPR (test code = RPR) nonreactive nonreactive [facility] GroupBacteria identified in Urine by [id number] 08:30:00* Test Item Value Reference Range Interpretation Comme nts culture,urine (test code = culture,urine) no growth after 1 day [facility] HospitalHepatitis B virus surface Ag [Presence] in Serum 2023-02-21 08:17:00* Test Item Value Reference Range Interpretation Comme nts .hepatitis B surface antigen (test code = .hepatitis B surface antigen) negative negative [facility] HospitalHIV 1+2 Ab [Presence] in [id number] 17:14:00* Test Item Value Reference Range Interpretation Comme nts HIV P24 Ag (test code = HIV P24 Ag) non-reactive nonreactive HIV-1/2 Ab (test code = HIV- 1/2 Ab) non-reactive nonreactive [facility]HIV [facility] ([facility]2023-02-20 17:14:00* Test Item Value Reference Range Interpretation Comme nts HIV P24 Ag (test code = HIV P24 Ag) non-reactive nonreactive HIV-1/2 Ab (test code = HIV- 1/2 Ab) non-reactive nonreactive [facility] HospitalRubella virus Ab [Titer] in [id number] 16:45:00* Test Item Value Reference Range Interpretation Comme nts rubella IgG (test code = rub fabby IgG) 15.03 IU/mL [facility] HospitalDrugs identified in Urine by Screen [id number] 16:28:00* Test Item Value Reference Range Interpretation Comme nts amphetamines screen urine (t est code = amphetamines screen urine) negative negative barbiturates, urine quant. ( test code = barbiturates, urine quant.) negative negative benzodiazepines screen urine (test code = benzodiazepines screen urine) negative negative cannabinoids (test code = cannabinoids) positive negative A cocaine (test code = cocaine) negative negative opiates (test code = opiates) negative negative hydrocodone (test code = hydrocodone) negative negative fentanyl (test code = fentanyl) negative negative phencyclidine (test code = phencyclidine) negative negative methadone (test code = methadone) negative negative propoxyphene (test code = propoxyphene) negative negative oxycodone (test code = oxycodone) negative negative drug screen note (test code = drug screen note) . [facility] W Auto Differential panel - [id number] 16:12:00 * Test Item Value Reference Range Interpretation Comme nts white blood count (test code = white blood count) 13.3 K/uL 4.0-11.5 H red blood count (test code = red blood count) 4.11 M/uL 3.80-5.20 hemoglobin (test code = hemoglobin) 11.7 g/dL 10.5-15.7 hematocrit (test code = hematocrit) 36.0 % 34.0-50.0 mean corpuscular volume (goldy t code = mean corpuscular volume) 87.6 fL 86.0-100.0 mean corpuscular hemoglobin (test code = mean corpuscular hemoglobin) 28.5 pg 26.2-33.4 mean corpuscular HGB conc (t est code = mean corpuscular HGB conc) 32.5 g/dL 30.0-34.0 red cell distribution width (test code = red cell distribution width) 13.6 % 12.0-15.5 platelet count (test code = platelet count) 342 K/uL 165-450 mean platelet volume (test c ode = mean platelet volume) 10.3 fL 9.4-12.6 neutrophils % (test code = neutrophils %) 73.1 % 44.4-80.1 Ig% (test code = Ig%) 0.6 % 0.0-0.4 H lymphocyte% (test code = lymphocyte%) 19.2 % 10.0-50.0 mono % (test code = mono %) 5.6 % 3.6-12.0 eos % (test code = eos %) 1.2 % 0.0-5.4 basophil % (test code = baso hue %) 0.3 % 0.1-1.2 absolute neutrophil count (t est code = absolute neutrophil count) 9.70 K/uL 1.56-6.13 H Ig# (test code = Ig#) 0.08 K/uL 0.00-0.03 H lymph # (test code = lymph #) 2.54 K/uL 1.18-3.74 mono # (test code = mono #) 0.74 K/uL 0.24-0.86 eos # (test code = eos #) 0.16 K/uL 0.04-0.36 basophil # (test code = baso hue #) 0.04 K/uL 0.01-0.08 NRBC% (test code = NRBC%) 0 /100 WBC 0-0.2 NRBC# (test code = NRBC#) 0 [facility]L [facility] [Presence] in Serum or Plasma 2023-02-20 14:15:00* Test Item Value Reference Range Interpretation Comme nts blood type (test code = blood type) on ind denae (test code = ind denae) negative [facility]Microsc[facility] observation [Identifier] in Vaginal fluid by Wet [id number] 13:43:17* Test Item Value Reference Range Interpretation Comme nts Clue Cells (test code = Clue Cells) negative WBCs (test code = WBCs) negative Trichomonads (test code = Trichomonads) negative Epithelial cells (test code = Epithelial cells) normal RBCs (test code = RBCs) negative [facility] (dipstick) panel - [id number] 13:28:46* Test Item Value Reference Range Interpretation Comme nts Leukocytes (test code = Leukocytes) Negative Nitrite (test code = Nitrite) negative Urobilinogen (test code = Urobilinogen) .2 Protein (test code = Protein) Negative pH (test code = pH) 7.0 Blood (test code = Blood) Negative Specific [place] (test code = Specific [place]) 1.025 Ketone (test code = Ketone) Negative Bilirubin (test code = Bilirubin) Negative Glucose (test code = Glucose) Negative Appearance (test code = Appearance) Clear Color (test code = Color) Yellow [facility] (dipstick) panel - [id number] 13:58:20* Test Item Value Reference Range Interpretation Comme nts Leukocytes (test code = Leukocytes) Negative Nitrite (test code = Nitrite) negative Urobilinogen (test code = Urobilinogen) .2 Protein (test code = Protein) Negative pH (test code = pH) 7.0 Blood (test code = Blood) Negative Specific [place] (test code = Specific [place]) 1.020 Ketone (test code = Ketone) Negative Bilirubin (test code = Bilirubin) Negative Glucose (test code = Glucose) Negative Appearance (test code = Appearance) Clear Color (test code = Color) Yellow [facility]chl/[id number] 21:11:00* Test Item Value Reference Range Interpretation Comme nts CT (test code = CT) CT not detected NG (test code = NG) NG not detected [facility] HospitalH[facility] [id number] 20:19:00* Test Item Value Reference Range Interpretation Comme nts HCG quantitative (test code = HCG quantitative) 241.8 mIU/mL 0-5 H [facility] - Serum or Plasma 2023-01-23 20:08:00* Test Item Value Reference Range Interpretation Comme nts glucose (test code = glucose) 106 mg/dL 74-106 blood urea nitrogen (test co de = blood urea nitrogen) 10 mg/dL 6-20 osmolality calculated,serum (test code = osmolality calculated,serum) 273 mOsm/kg 280-300 L creatinine (test code = creatinine) 0.74 mg/dL 0.50-0.90 glomerular filtration rate ( test code = glomerular filtration rate) > 60.00 BUN/creatinine ratio (test c ode = BUN/creatinine ratio) 13.5 12.0-20.0 sodium level (test code = so dium level) 137 mmol/L 135-145 potassium level (test code = potassium level) 3.6 mmol/L 3.5-5.2 chloride level (test code = chloride level) 101 mmol/L 98-108 CO2 (test code = CO2) 25 mmol/L 21-32 anion gap (test code = anion gap) 14.6 mEq/L 12.0-20.0 calcium level (test code = calcium level) 9.1 mg/dL 8.6-10.0 total protein (test code = t otal protein) 7.0 g/dL 6.6-8.7 albumin (test code = albumin) 4.1 g/dL 3.5-5.2 globulin (test code = globulin) 2.9 g/dL 1.5-4.5 A/G ratio (test code = A/G ratio) 1.4 >1.0 bilirubin,total (test code = bilirubin,total) < 0.2 0.0-1.2 AST/SGOT (test code = AST/SGOT) 12 U/L 15-32 L ALT/SGPT (test code = ALT/SGPT) 18 U/L 0-33 alkaline phosphatase, total (test code = alkaline phosphatase, total) 77 U/L 35-105 [facility] W Auto Differential panel - [id number] 19:50:00 * Test Item Value Reference Range Interpretation Comme nts white blood count (test code = white blood count) 10.1 K/uL 4.0-11.5 red blood count (test code = red blood count) 4.34 M/uL 3.80-5.20 hemoglobin (test code = hemoglobin) 12.3 g/dL 10.5-15.7 hematocrit (test code = hematocrit) 37.4 % 34.0-50.0 mean corpuscular volume (goldy t code = mean corpuscular volume) 86.2 fL 86.0-100.0 mean corpuscular hemoglobin (test code = mean corpuscular hemoglobin) 28.3 pg 26.2-33.4 mean corpuscular HGB conc (t est code = mean corpuscular HGB conc) 32.9 g/dL 30.0-34.0 red cell distribution width (test code = red cell distribution width) 14.0 % 12.0-15.5 platelet count (test code = platelet count) 335 K/uL 165-450 mean platelet volume (test c ode = mean platelet volume) 9.4 fL 9.4-12.6 neutrophils % (test code = neutrophils %) 58.9 % 44.4-80.1 Ig% (test code = Ig%) 0.3 % 0.0-0.4 lymphocyte% (test code = lymphocyte%) 28.9 % 10.0-50.0 mono % (test code = mono %) 7.5 % 3.6-12.0 eos % (test code = eos %) 4.0 % 0.0-5.4 basophil % (test code = baso hue %) 0.4 % 0.1-1.2 absolute neutrophil count (t est code = absolute neutrophil count) 5.96 K/uL 1.56-6.13 Ig# (test code = Ig#) 0.03 K/uL 0.00-0.03 lymph # (test code = lymph #) 2.92 K/uL 1.18-3.74 mono # (test code = mono #) 0.76 K/uL 0.24-0.86 eos # (test code = eos #) 0.40 K/uL 0.04-0.36 H basophil # (test code = baso hue #) 0.04 K/uL 0.01-0.08 NRBC% (test code = NRBC%) 0 /100 WBC 0-0.2 NRBC# (test code = NRBC#) 0 K/uL [facility] and [id number] 19:35:00* Test Item Value Reference Range Interpretation Comme nts antibody screen (test code = antibody screen) negative blood type (test code = blood type) on [facility], [id number] 19:09:00* Test Item Value Reference Range Interpretation Comme nts HCG qualitative,urine (test code = HCG qualitative,urine) positive neg [facility] [id number] 19:08:00* Test Item Value Reference Range Interpretation Comme nts color, urine (test code = co jo ann, urine) light yellow appearance, urine (test code = appearance, urine) clear clear urine glucose (test code = u rine glucose) negative negative bilirubin, urine (test code = bilirubin, urine) negative negative ketone, urine (test code = ketone, urine) negative negative specific gravity,urine (test code = specific gravity,urine) 1.020 1.003-1.030 blood urine (test code = blo od urine) negative negative pH,urine (test code = pH,urine) 6.000 5-9 protein urine (UA) (test cod e = protein urine (UA)) negative negative urobilinogen, urine (test co de = urobilinogen, urine) normal 0.2-1.0 nitrate, urine (test code = nitrate, urine) negative negative urine leukocyte esterase (te st code = urine leukocyte esterase) negative negative urine culture added? (test c ode = urine culture added?) no [facility] HospitalChoriogonadotropin.beta subunit [Units/volume] in Serum or [id number] 18:21:00* Test Item Value Reference Range Interpretation Comme nts HCG quantitative (test code = HCG quantitative) < 0.1 0-5 [facility]TI [id number] 00:00:00* Test Item Value Reference Range Interpretation Comme nts CT/NG (test code = CT/NG) normal trichomonas vaginalis addon - swab (test code = trichomonas vaginalis addon - swab) normal [facility] Hospitalthyroid stimulating hormone [id number] 16:18:00* Test Item Value Reference Range Interpretation Comme nts thyroid stimulating hormone L (test code = thyroid stimulating hormone L) 1.18 uIU/mL 0.36-3.74 [facility] [id number] 16:18:00* Test Item Value Reference Range Interpretation Comme [facility] T4 (test code = T4) 8.6 ug/dL 4.5-11.7 [facility]Com[facility] 2000 panel - Serum or Plasma 2022-10-24 16:11:00* Test Item Value Reference Range Interpretation Comme nts glucose (test code = glucose) 89 mg/dL 74-106 blood urea nitrogen (test co de = blood urea nitrogen) 11 mg/dL 6-20 osmolality calculated,serum (test code = osmolality calculated,serum) 267 mOsm/kg 280-300 L creatinine (test code = creatinine) 0.62 mg/dL 0.50-0.90 glomerular filtration rate ( test code = glomerular filtration rate) > 60.00 BUN/creatinine ratio (test c ode = BUN/creatinine ratio) 17.7 12.0-20.0 sodium level (test code = so dium level) 134 mmol/L 135-145 L potassium level (test code = potassium level) 3.8 mmol/L 3.5-5.2 chloride level (test code = chloride level) 103 mmol/L 98-108 CO2 (test code = CO2) 21 mmol/L 21-32 anion gap (test code = anion gap) 13.8 mEq/L 12.0-20.0 calcium level (test code = calcium level) 9.0 mg/dL 8.6-10.0 total protein (test code = t otal protein) 8.1 g/dL 6.6-8.7 albumin (test code = albumin) 4.4 g/dL 3.5-5.2 globulin (test code = globulin) 3.7 g/dL 1.5-4.5 A/G ratio (test code = A/G ratio) 1.2 >1.0 bilirubin,total (test code = bilirubin,total) 0.3 mg/dL 0.0-1.2 AST/SGOT (test code = AST/SGOT) 18 U/L 15-32 ALT/SGPT (test code = ALT/SGPT) 18 U/L 0-33 alkaline phosphatase, total (test code = alkaline phosphatase, total) 77 U/L 35-105 [facility] Hospitallipid [id number] 16:11:00* Test Item Value Reference Range Interpretation Comme nts cholesterol level (test code = cholesterol level) 161 mg/dL 150-200 triglycerides level (test co de = triglycerides level) 119 mg/dL <150 HDL cholesterol (test code = HDL cholesterol) 27 mg/dL >65 L Cholesterol in LDL [Mass/vol ume] in Serum or Plasma (test code = 2089-1) 112 mg/dL <100 H cholesterol risk ratio (test code = cholesterol risk ratio) 5.962 [facility] HospitalCB [facility] Auto Differential panel - [id number] 15:54:00 * Test Item Value Reference Range Interpretation Comme nts white blood count (test code = white blood count) 10.4 K/uL 4.0-11.5 red blood count (test code = red blood count) 4.60 M/uL 3.80-5.20 hemoglobin (test code = hemoglobin) 13.2 g/dL 10.5-15.7 hematocrit (test code = hematocrit) 41.1 % 34.0-50.0 mean corpuscular volume (goldy t code = mean corpuscular volume) 89.3 fL 86.0-100.0 mean corpuscular hemoglobin (test code = mean corpuscular hemoglobin) 28.7 pg 26.2-33.4 mean corpuscular HGB conc (t est code = mean corpuscular HGB conc) 32.1 g/dL 30.0-34.0 red cell distribution width (test code = red cell distribution width) 13.7 % 12.0-15.5 platelet count (test code = platelet count) 401 K/uL 165-450 mean platelet volume (test c ode = mean platelet volume) 9.6 fL 9.4-12.6 neutrophils % (test code = neutrophils %) 74.6 % 44.4-80.1 Ig% (test code = Ig%) 0.3 % 0.0-0.4 lymphocyte% (test code = lymphocyte%) 17.4 % 10.0-50.0 mono % (test code = mono %) 6.7 % 3.6-12.0 eos % (test code = eos %) 0.8 % 0.0-5.4 basophil % (test code = baso hue %) 0.2 % 0.1-1.2 absolute neutrophil count (t est code = absolute neutrophil count) 7.79 K/uL 1.56-6.13 H Ig# (test code = Ig#) 0.03 K/uL 0.00-0.03 lymph # (test code = lymph #) 1.82 K/uL 1.18-3.74 mono # (test code = mono #) 0.70 K/uL 0.24-0.86 eos # (test code = eos #) 0.08 K/uL 0.04-0.36 basophil # (test code = baso hue #) 0.02 K/uL 0.01-0.08 NRBC% (test code = NRBC%) 0 /100 WBC 0-0.2 NRBC# (test code = NRBC#) 0 K/uL [facility] GroupMicroscopic observation [Identifier] in Vaginal fluid by Wet [id number] 15:08:11* Test Item Value Reference Range Interpretation Comme nts Clue Cells (test code = Clue Cells) positive WBCs (test code = WBCs) negative Trichomonads (test code = Trichomonads) negative Epithelial cells (test code = Epithelial cells) abnormal RBCs (test code = RBCs) negative [facility]ouppregnancy test, [id number] 14:45:00* Test Item Value Reference Range Interpretation Comme nts Test (test code = Test) negative [facility] GroupUrinalysis macro (dipstick) panel - [id number] 14:45:00* Test Item Value Reference Range Interpretation Comme nts Leukocytes (test code = Leukocytes) Negative Nitrite (test code = Nitrite) negative Urobilinogen (test code = Urobilinogen) 1 Protein (test code = Protein) 30 pH (test code = pH) 6.5 Blood (test code = Blood) Non-Hemolyzed: Trace Specific [place] (test code = Specific [place]) 1.025 Ketone (test code = Ketone) Negative Bilirubin (test code = Bilirubin) Negative Glucose (test code = Glucose) Negative Appearance (test code = Appearance) Clear Color (test code = Color) Yellow [facility] GroupInfluenza virus A and B and SARS-CoV+SARS-CoV-2 (COVID- 19) Ag panel - Upper respiratory specimen byRapid [id number] 12:53:00 * Test Item Value Reference Range Interpretation Comme nts RAPID SARS COV (test code = RAPID SARS COV) negative RAPID FLU A (test code = RAP ID FLU A) negative RAPID FLU B (test code = RAP ID FLU B) negative [facility]rapid strep group A, [id number] 12:53:00* Test Item Value Reference Range Interpretation Comme nts Strep Result (test code = St rep Result) negative [facility], [id number] 14:38:32* Test Item Value Reference Range Interpretation Comme nts Test (test code = Test) negative [facility] HospitalUrinalysis macro (dipstick) panel - [id number] 14:37:58* Test Item Value Reference Range Interpretation Comme nts Leukocytes (test code = Leukocytes) Negative Nitrite (test code = Nitrite) negative Urobilinogen (test code = Urobilinogen) .2 Protein (test code = Protein) Negative pH (test code = pH) 6.5 Blood (test code = Blood) Negative Specific [place] (test code = Specific [place]) 1.025 Ketone (test code = Ketone) Negative Bilirubin (test code = Bilirubin) Negative Glucose (test code = Glucose) Negative Appearance (test code = Appearance) Clear Color (test code = Color) Yellow [facility]ARS-CoV+SARS-CoV-2 (COVID-19) Ag [Presence] in Respiratory specimen by Rapid [id number] 09:04:00* Test Item Value Reference Range Interpretation Comme nts SARS-CoV - 2 (test code = SA RS-CoV - 2) negative [facility] HospitalCBC (INCLUDES AUTOMATED DIFFERENTIAL)*[id number] 06:53:00* Test Item Value Reference Range Interpretation Comme nts WBC (test code = WBC) 12.1 10\S\3/uL 4.5-11.0 H RBC (test code = RBC) 3.34 10\S\6/uL 4.30-5.70 L HGB (test code = HBG) 8.7 g/dL 12.0-15.5 L HCT (test code = HCT) 28.5 % 35.0-44.0 L MCV (test code = MCV) 85.3 fL 81.0-99.0 MCH (test code = MCH) 26.0 pg 27.0-31.0 L MCHC (test code = MCHC) 30.5 g/dL 32.0-36.0 L RDW (test code = RDW) 15.9 % 11.5-14.5 H PLT (test code = PLT) 226 10\S\3/uL 130-400 MPV (test code = MPV) 11.2 fL 9.4-12.4 NEUTROP # (test code = NE#) 10.3 10\S\3/uL 1.6-8.0 H LYMPH # (test code = LY#) 1.1 10\S\3/uL 1.1-3.5 MONOCYTE # (test code = MO#) 0.6 10\S\3/uL 0.0-1.1 EOSINOPH # (test code = EO#) 0.0 10\S\3/uL 0.0-0.7 BASOPHIL # (test code = BA#) 0.0 10\S\3/uL 0.0-0.3 IG # (test code = IG#) 0.07 10\S\3/uL 0.00-0.06 H NRBC # (test code = NRBC#) 0.00 10\S\3/uL 0.00-0.01 NEUTROPH % (test code = NE%) 85.3 % 35.0-73.0 H LYMPH % (test code = LY%) 8.9 % 20.0-55.0 L MONO % (test code = MO%) 4.8 % 2.5-10.0 EOSINOPH % (test code = EO%) 0.3 % 0.0-5.0 BASOPHIL % (test code = BA%) 0.1 % 0.0-2.0 IG % (test code = IG%) 0.6 % 0.0-0.8 NRBC% (test code = NRBC%) 0.0 % 0.0-0.2 MANDIFF (test code = WMDIFF) NO NO RBC MORPH (test code = WRBCMOR) NORMAL HIV *WW*2020-04-15 14:40:00* Test Item Value Reference Range Interpretation Comme nts HIV-1,2 and p24 (test code = CHIV) NON-REACTIVE NON-REACTIVE SYPHILIS SCREENING WW2020-04-15 14:14:00* Test Item Value Reference Range Interpretation Comme nts T PALLIDUM AB (test code = SYPHINT) NON-REACTIVE NON-REACTIVE SYPHC (test code = SYPHC) RPR test has been updated to Treponemal Immunoassay. Interpretation of results is similar HEPATITIS B SURFACE ANTIGEN *WW*2020-04-15 14:11:00* Test Item Value Reference Range Interpretation Comme nts HBSAG (test code = HBSAG) NON-REACTIVE NON-REACTIVE URINALYSIS *WW*2020-04-15 08:36:00* Test Item Value Reference Range Interpretation Comme nts COLOR (test code = COLU) YELLOW YELLOW CLARITY (test code = CLA) CLEAR CLEAR GLUCOSE UR (test code = UA GLUCOSE) NEGATIVE NEGATIVE BILI UR (test code = BILE) NEGATIVE NEGATIVE KETONES UR (test code = DESIRE) NEGATIVE NEGATIVE SP GRAVITY (test code = SPGR) 1.025 1.005-1.030 PH UR (test code = PH) 6.0 4.5-8.0 PROTEIN UR (test code = PU) NEGATIVE NEGATIVE UROBIL UR (test code = UROQ) 0.2 EU/dL 0.2-1.0 NITRITE UR (test code = NITRITE) NEGATIVE NEGATIVE BLOOD UR (test code = UA BLOOD) NEGATIVE NEGATIVE LEUK ES UR (test code = LEUK) NEGATIVE NEGATIVE AUAM (test code = WAUAM) NO NO SARS-CoV (RAPID ANTIGEN) WW2020-04-15 08:15:00* Test Item Value Reference Range Interpretation Comme nts SARS-CoV (ANTIGEN) (test code = COVAG) NEGATIVE NEGATIVE COVID AG (test code = COVAGC) This test has been marketed under the FDA Emergency Use Authorization (EUA) to meet challenges of the COVID-19 pandemic. The validation standards normally enforced by the FDA and the [employer] [employer] ([employer]) are more stringent than those required for this test. Therefore, the result should be interpreted with caution and close attention to other clinical and epidemiological data CBC (INCLUDES AUTOMATED DIFFERENTIAL)*[id number] 08:04:00* Test Item Value Reference Range Interpretation Comme nts WBC (test code = WBC) 12.0 10\S\3/uL 4.5-11.0 H RBC (test code = RBC) 4.08 10\S\6/uL 4.30-5.70 L HGB (test code = HBG) 10.8 g/dL 12.0-15.5 L HCT (test code = HCT) 34.1 % 35.0-44.0 L MCV (test code = MCV) 83.6 fL 81.0-99.0 MCH (test code = MCH) 26.5 pg 27.0-31.0 L MCHC (test code = MCHC) 31.7 g/dL 32.0-36.0 L RDW (test code = RDW) 15.7 % 11.5-14.5 H PLT (test code = PLT) 286 10\S\3/uL 130-400 MPV (test code = MPV) 11.3 fL 9.4-12.4 NEUTROP # (test code = NE#) 9.3 10\S\3/uL 1.6-8.0 H LYMPH # (test code = LY#) 1.8 10\S\3/uL 1.1-3.5 MONOCYTE # (test code = MO#) 0.7 10\S\3/uL 0.0-1.1 EOSINOPH # (test code = EO#) 0.1 10\S\3/uL 0.0-0.7 BASOPHIL # (test code = BA#) 0.0 10\S\3/uL 0.0-0.3 IG # (test code = IG#) 0.08 10\S\3/uL 0.00-0.06 H NRBC # (test code = NRBC#) 0.00 10\S\3/uL 0.00-0.01 NEUTROPH % (test code = NE%) 77.8 % 35.0-73.0 H LYMPH % (test code = LY%) 15.0 % 20.0-55.0 L MONO % (test code = MO%) 5.6 % 2.5-10.0 EOSINOPH % (test code = EO%) 0.6 % 0.0-5.0 BASOPHIL % (test code = BA%) 0.3 % 0.0-2.0 IG % (test code = IG%) 0.7 % 0.0-0.8 NRBC% (test code = NRBC%) 0.0 % 0.0-0.2 MANDIFF (test code = WMDIFF) NO NO RBC MORPH (test code = WRBCMOR) NORMAL PRO TIME AND PTT 2020-01-26 15:57:00* Test Item Value Reference Range Interpretation Comme nts PT (test code = TT) 13.2 s 9.8-13.6 INR (test code = INR) 1.1 INRH (test code = INRH) SUGGESTED THERAPEUTIC RANGE FOR INR: 2.5 - 3.5 For Patients with Prosthetic Valves or Patients with recurrent Thromboembolic Events 2.0 - 3.0 For Most Other Applications PTT (test code = PTT) 30.1 s 20.2-38.0 PTTH (test code = PTTH) To monitor the effectiveness of heparin, we offer the Anti-Xa (Heparin Assay). It can be used for either unfractionated or LMW Heparin. Order Code is ANTI-XA FIBRINOGEN QUANTITATIVE 2020-01-26 15:50:00* Test Item Value Reference Range Interpretation Comme [facility] FIBRINOGEN (test code = FIB) 810 mg/dL 260-480 H LIVER PROFILE 2020-01-26 15:42:00* Test Item Value Reference Range Interpretation Comme nts BILI TOTAL (test code = 11A) 0.2 mg/dL 0.2-1.0 BILI DIRCT (test code = 12A) 0.1 mg/dL 0.0-0.2 BILI INDIR (test code = BILII) 0.1 mg/dL <=0.8 PROTEIN (test code = 07D) 7.5 g/dL 6.4-8.2 ALBUMIN (test code = 08D) 2.9 g/dL 3.5-4.8 L GLOBULIN (test code = GLB) 4.6 g/dL 1.5-3.8 H ALB/GLOB (test code = AGRR) 0.6 1.0-2.6 L ALK PHOS (test code = 35A) 102 IU/L 42-121 AST (test code = 30A) 6 IU/L <=42 ALT (test code = 31A) 6 IU/L <=78 URIC ACID 2020-01-26 15:40:00* Test Item Value Reference Range Interpretation Comme nts URIC ACID (test code = 41A) 3.9 mg/dL 2.6-6.0 LDH-LACTIC DEHYDROGENASE WW2020-01-26 15:39:00* Test Item Value Reference Range Interpretation Comme nts LDH (test code = 33A) 127 IU/L 100-190 BASIC METABOLIC PANEL 2020-01-26 15:38:00* Test Item Value Reference Range Interpretation Comme nts GLUCOSE (test code = 06D) 78 mg/dL 75-100 SODIUM (test code = 01A) 138 mmol/L 136-145 POTASSIUM (test code = 01B) 4.0 mmol/L 3.6-5.1 CHLORIDE (test code = 04A) 106 mmol/L 98-107 CO2 (test code = 02A) 25 mmol/L 22-32 ANION GAP (test code = ANG) 11.0 mmol/L BUN (test code = 05D) 7 mg/dL 7-18 CREATININE (test code = 03E) 0.6 mg/dL 0.4-1.1 GFR (test code = GFR) 133 mL/min/1.73m\S\2 >=90 GFR (test code = GFRAA) 154 mL/min/1.73m\S\2 >=90 EGFR (test code = EGFR) eGFR BY CKD-EPI CALCULATION IS NOT RECOMMENDED FOR PATIENTS UNDER 18 YEARS OF AGE. BUN/CREA (test code = BCR) 13 12-20 CALCIUM (test code = 09D) 8.8 mg/dL 8.3-9.5 CBC (INCLUDES AUTOMATED DIFFERENTIAL)*[id number] 15:26:00* Test Item Value Reference Range Interpretation Comme nts WBC (test code = WBC) 11.1 10\S\3/uL 4.5-11.0 H RBC (test code = RBC) 3.88 10\S\6/uL 4.30-5.70 L HGB (test code = HBG) 11.0 g/dL 12.0-15.5 L HCT (test code = HCT) 33.7 % 35.0-44.0 L MCV (test code = MCV) 86.9 fL 81.0-99.0 MCH (test code = MCH) 28.4 pg 27.0-31.0 MCHC (test code = MCHC) 32.6 g/dL 32.0-36.0 RDW (test code = RDW) 13.2 % 11.5-14.5 PLT (test code = PLT) 303 10\S\3/uL 130-400 MPV (test code = MPV) 9.8 fL 9.4-12.4 NEUTROP # (test code = NE#) 8.8 10\S\3/uL 1.6-8.0 H LYMPH # (test code = LY#) 1.5 10\S\3/uL 1.1-3.5 MONOCYTE # (test code = MO#) 0.7 10\S\3/uL 0.0-1.1 EOSINOPH # (test code = EO#) 0.1 10\S\3/uL 0.0-0.7 BASOPHIL # (test code = BA#) 0.0 10\S\3/uL 0.0-0.3 IG # (test code = IG#) 0.06 10\S\3/uL 0.00-0.06 NRBC # (test code = NRBC#) 0.00 10\S\3/uL 0.00-0.01 NEUTROPH % (test code = NE%) 78.9 % 35.0-73.0 H LYMPH % (test code = LY%) 13.9 % 20.0-55.0 L MONO % (test code = MO%) 5.9 % 2.5-10.0 EOSINOPH % (test code = EO%) 0.5 % 0.0-5.0 BASOPHIL % (test code = BA%) 0.3 % 0.0-2.0 IG % (test code = IG%) 0.5 % 0.0-0.8 NRBC% (test code = NRBC%) 0.0 % 0.0-0.2 MANDIFF (test code = WMDIFF) NO NO RBC MORPH (test code = WRBCMOR) NORMAL URINALYSIS *WW*2020-01-26 15:24:00* Test Item Value Reference Range Interpretation Comme nts COLOR (test code = COLU) YELLOW YELLOW CLARITY (test code = CLA) CLEAR CLEAR GLUCOSE UR (test code = UA GLUCOSE) NEGATIVE NEGATIVE BILI UR (test code = BILE) NEGATIVE NEGATIVE KETONES UR (test code = DESIRE) NEGATIVE NEGATIVE SP GRAVITY (test code = SPGR) 1.015 1.005-1.030 PH UR (test code = PH) 7.5 4.5-8.0 PROTEIN UR (test code = PU) NEGATIVE NEGATIVE UROBIL UR (test code = UROQ) 0.2 EU/dL 0.2-1.0 NITRITE UR (test code = NITRITE) NEGATIVE NEGATIVE BLOOD UR (test code = UA BLOOD) NEGATIVE NEGATIVE LEUK ES UR (test code = LEUK) NEGATIVE NEGATIVE AUAM (test code = WAUAM) NO NO
[2024-12-03 17:16] LABS: Specific Gravity 1.024 (1.005-1.030); Sqamous Epithelial <5 /HPF (None Seen); Urine Bacteria <20 /HPF (<20); Urine Bilirubin NEGATIVE (Negative); Urine Blood Trace (Negative); Urine Clarity Clear (Clear); Urine Color Yellow (Yellow); Urine Crystals Unidentified Few /HPF (None Seen); Urine Glucose NEGATIVE (Negative); Urine Ketones NEGATIVE (Negative); Urine Micro Reflex YN NO BILL MICROSCOPIC; Urine Mucus Slight /HPF (None Seen); Urine Nitrite NEGATIVE (Negative); Urine Protein NEGATIVE (Negative); Urine Urobilinogen Normal (Normal); Urine WBC <5 /HPF (<5); Urine pH 5.5 (5.0-7.0)
[2024-12-03] MEDS ORDERED: AZITHROMYCIN 250 MG TAB ONE (20:25)
[2024-12-03] MEDS ORDERED: LIDOCAINE 1% MPF 2 ML AMPULE ONE (20:26)
[2024-12-03] MEDS ORDERED: CEFTRIAXONE 250 MG/VIAL ONE (20:26)
--- NOTE | 2024-12-03 21:37 | ER ---
Nurse's Notes [facility] Name: Alayna White Age: 24 yrs Sex: Female : 2000 Arrival Date: 12/03/2024 Time: 15:27 Bed 9 Private MD: Diagnosis: Encounter for screening for infections with a predominantly sexual mode of transmission Presentation: 12/03 15:54 Chief complaint: Patient states: possible UTI X 1 week. Coronavirus screen: At this iw time, the client does not indicate any symptoms associated with coronavirus-19. Ebola Screen: No symptoms or risks identified at this time. Initial Sepsis Screen: Does the patient meet any 2 criteria? No. Patient's initial sepsis screen is negative. Does the patient have a suspected source of infection? No. Patient's initial sepsis screen is negative. Risk Assessment: Do you want to hurt yourself or someone else? Patient reports no desire to harm self or others. Note thinks she might have a UTI or yeast infection , has a lot of discomfort when she pees, started a week ago. Onset of symptoms was November 26, 2024. 15:54 Method Of Arrival: Ambulatory iw 15:54 Acuity: MANDEEP 4 iw Historical: - Allergies: 15:55 Ibuprofen; iw - Home Meds: 15:55 None [Active]; iw - PMHx: 15:55 None; iw - PSHx: 15:55 section; iw - Immunization history:: Adult Immunizations unknown. - Infectious Disease History:: Denies. - Social history:: Smoking status: . Screenin:04 [facility] ED Fall Risk Assessment (Adult) History of falling in the last 3 months, ph including since admission No falls in past 3 months (0 pts) Confusion or Disorientation No (0 pts) Intoxicated or Sedated No (0 pts) Impaired Gait No (0 pts) Mobility Assist Device Used No (0 pt) Altered Elimination No (0 pt) Score/Fall Risk Level 0 - 2 = Low Risk Oriented to surroundings, Maintained a safe environment, Hourly rounding (assess needs \T\ fall precautionary measures) done. Abuse screen: Denies threats or abuse. Denies injuries from another. Nutritional screening: No deficits noted. Tuberculosis screening: No symptoms or risk factors identified. Assessment: 18:54 General: Appears in no apparent distress. comfortable, well groomed, Behavior is calm, ph cooperative, appropriate for age. Pain: Complains of pain in pelvis. Neuro: Level of Consciousness is awake, alert, obeys commands, Oriented to person, place, time, situation. Cardiovascular: Capillary refill < 3 seconds in bilateral fingers Patient's skin is warm and dry. Respiratory: Airway is patent Respiratory effort is even, unlabored. : Reports burning with urination, pain in suprapubic area. Derm: Skin is pink, warm \T\ dry. 21:50 General: Appears in no apparent distress. comfortable, Behavior is calm, cooperative. kb3 Pain: Denies pain. Vital Signs: 15:54 BP 127 / 79; Pulse 75; Resp 16; Temp 97.8; Pulse Ox 100% on R/A; Weight 88.9 kg; Height iw 5 ft. 2 in. ; 21:50 BP 120 / 72; Pulse 70; Resp 18; Pulse Ox 100% ; kb3 15:54 Body Mass Index 35.85 (88.90 kg, 157.48 cm) iw ED Course: 15:37 Patient arrived in ED. cj3 15:42 Cameron Steele PA is PHCP. cp 15:42 Cameron Smith MD is Attending Physician. cp 15:55 Triage completed. iw 18:03 Tayler Metcalf, RN is Primary Nurse. ph 18:04 Arm band placed on Patient placed in an exam room. ph 18:04 Patient has correct armband on for positive identification. Bed in low position. Call ph light in reach. Side rails up X 1. Pulse ox on. NIBP on. Door closed. Noise minimized. Warm blanket given. 20:00 Provided Education on: Educated regarding pelvic exam, STD treatment. kb3 20:00 Assist provider with pelvic exam: Set up pelvic tray. Performed by Cameron OVERTNO kb3 Specimens sent to lab. Patient tolerated well. Patient did not have IV access during this emergency room visit. Administered Medications: 20:33 Drug: Rocephin (cefTRIAXone) IM 250 mg IM once Route: IM; Site: right ventrogluteal; kb3 20:38 Follow up: Response: No adverse reaction kb3 20:33 Drug: AZITHromycin PO 1 grams PO once Route: PO; kb3 20:38 Follow up: Response: No adverse reaction kb3 Medication: 18:04 VIS not applicable for this client. ph Outcome: 21:37 Discharge ordered by . cp 21:50 Discharged to home ambulatory, kb3 21:50 Condition: stable 21:50 Discharge instructions given to patient, Instructed on discharge instructions, follow up and referral plans. medication usage, Demonstrated understanding of instructions, follow-up care, medications, 22:15 Patient left the ED. kb3 Signatures: Theresa Allen RN FRANKO iw Tayler Metcalf RN RN ph Page, Corey, PA PA cp Bradberry, Kelly RN RN kb3 Oneida Meraz 3
--- NOTE | 2024-12-03 21:38 | EDPHYS ---
Physician Documentation [facility] Name: Alayna White Age: 24 yrs Sex: Female : 2000 Arrival Date: 12/03/2024 Time: 15:27 Bed 9 Private MD: ED Physician Cameron Smith HPI: 12/03 16:05 This 24 yrs old Female presents to ER via Ambulatory with complaints of cp Urinary Problem. 16:05 The patient presents with urinary symptoms, frequency. Onset: The symptoms/episode cp began/occurred 1 week(s) ago. 16:05 Associated signs and symptoms: Pertinent positives: vaginal discharge and concern for cp possible STI, Pertinent negatives: vaginal bleeding, abdominal pain. Severity of symptoms: in the emergency department the symptoms are unchanged, despite home interventions. Historical: - Allergies: 15:55 Ibuprofen; iw - Home Meds: 15:55 None [Active]; iw - PMHx: 15:55 None; iw - PSHx: 15:55 section; iw - Immunization history:: Adult Immunizations unknown. - Infectious Disease History:: Denies. - Social history:: Smoking status: . ROS: 16:10 Constitutional: Negative for body aches, chills, fever, poor PO intake, cp 16:10 Eyes: Negative for injury, pain, redness, and discharge, cp 16:10 Abdomen/GI: Negative for abdominal pain, vomiting, diarrhea, constipation, 16:10 Back: Negative for pain at rest, pain with movement, 16:10 : Positive for urinary symptoms, vaginal discharge, Negative for vaginal bleeding, 16:10 All other systems are negative, Exam: 16:15 Constitutional: The patient appears in no acute distress, alert, awake, non-toxic, well cp developed, well nourished, overweight 16:15 Head/Face: Normocephalic, atraumatic. cp 16:15 Eyes: Periorbital structures: appear normal, Conjunctiva: normal, no exudate, no injection, Sclera: no appreciated abnormality, Lids and lashes: appear normal, bilaterally, 16:15 ENT: External ear(s): are unremarkable, Nose: is normal, Mouth: Lips: moist, Oral mucosa: moist, Posterior pharynx: Airway: no evidence of obstruction, patent, 16:15 Chest/axilla: Inspection: normal, 16:15 Cardiovascular: Rate: normal, 16:15 Respiratory: the patient does not display signs of respiratory distress, Respirations: normal, no use of accessory muscles, no retractions, labored breathing, is not present, 16:15 Abdomen/GI: Inspection: abdomen appears normal, Palpation: abdomen is soft and non-tender, in all quadrants, 20:30 : Pelvic Exam: External exam: is normal, Speculum exam: no bleeding is noted, cp cervicitis present, os that is closed, discharge, white, the nurse was present for the exam, Sexual behavior: the patient is sexually active, Vital Signs: 15:54 BP 127 / 79; Pulse 75; Resp 16; Temp 97.8; Pulse Ox 100% on R/A; Weight 88.9 kg; Height iw 5 ft. 2 in. ; 21:50 BP 120 / 72; Pulse 70; Resp 18; Pulse Ox 100% ; kb3 15:54 Body Mass Index 35.85 (88.90 kg, 157.48 cm) iw MDM: 18:07 Medical Screening Exam initiated maricel 19:00 Differential diagnosis: cervicitis, ectopic , pelvic inflammatory disease, cp urinary tract infection, vaginosis. 21:36 Data reviewed: vital signs, nurses notes, lab test result(s), and as a result, I will cp continue to observe the patient. 21:36 Counseling: I had a detailed discussion with the patient and/or guardian regarding the cp historical points, exam findings, and any diagnostic results supporting the discharge/admit diagnosis, to return to the emergency department if symptoms worsen or persist or if there are any questions or concerns that arise at home. 12/03 16:05 Order name: Urinalysis W/Microscopic; Complete Time: 17:58 cp 12/03 16:05 Order name: Test, Urine; Complete Time: 17:58 cp 12/03 18:15 Order name: GC (Benny/Chl) Probe VAGINAL (Do not order if pt is under 13, order Culture cp instead) 12/03 18:15 Order name: Wet Prep; Complete Time: 21:32 cp 12/03 18:15 Order name: Pelvic Exam Setup; Complete Time: 18:55 cp Administered Medications: 20:33 Drug: Rocephin (cefTRIAXone) IM 250 mg IM once Route: IM; Site: right ventrogluteal; kb3 20:38 Follow up: Response: No adverse reaction kb3 20:33 Drug: AZITHromycin PO 1 grams PO once Route: PO; kb3 20:38 Follow up: Response: No adverse reaction kb3 Disposition Summary: 12/03/24 21:37 Discharge Ordered Notes: Location: Home cp Problem: new cp Symptoms: have improved cp Condition: Stable cp Diagnosis - Encounter for screening for infections with a predominantly sexual mode of cp transmission Followup: cp - With: Private Physician - When: 2 - 3 days - Reason: Worsening of condition Discharge Instructions: - Discharge Summary Sheet cp - Health Maintenance, Female cp - Preventing Sexually Transmitted Infections, Adult cp Forms: - Medication Reconciliation Form cp - Antibiotic Education cp - Prescription Opioid Use cp - Patient Portal Instructions cp - Leadership Thank You Letter cp Signatures: Dispatcher [employer] EDMS Cameron Smith MD MD cha Williams, Irene, RN Tayler Chacon RN RN Cameron Reynoso PA PA cp Gisele Sotelo RN RN kb3 Corrections: (The following items were deleted from the chart) 16:06 16:05 Urinalysis W/Microscopic+U.LAB.BRZ ordered. EDMS EDMS 16:06 16:05 Test, Urine+UC.LAB.BRZ ordered. EDMS EDMS
[2024-12-03 22:58] VITALS: TEMP 97.8; O2SAT 100
[2024-12-03 23:10] VITALS: BP 120/72
== END 2024-12-03 22:15 | disposition home or self-care (01) ==
LOC: ER 15:27
DX: Z11.3 Encounter for screening for infections with a predominantly sexual mode of transmission (principal)
CPT/HCPCS: 81001; 81025; 87210; 87490; 87590; J0696